=== PATIENT | male | born 1995 | race Caucasian/White ===

== ENCOUNTER 2019-05-27 20:40 | Emergency (ER) | payer MEDICAID ==
[2019-05-27] MEDS ORDERED: Lactated Ringers 1,000 ML IV ONE (22:03)
--- NOTE | 2019-05-27 22:05 | EDM.PDOC ---
ED HPI GENERAL MEDICAL PROBLEM - General Chief Complaint: General Stated Complaint: CHILLS COUGH Time Seen by Provider: 05/27/19 21:36 Source of Information: Reports: Family (Mother (primarily), A[facility] caregiver, father) History Limitations: Reports: Physical Impairment - History of Present Illness INITIAL COMMENTS - FREE TEXT/NARRATIVE: Mr. 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 The patient also has depression, anxiety, and scoliosis. He is on numerous antiepileptic and antidepressive medications. [facility] resides [facility] an [facility]. He is now brought to the ED by both his parents and an [facility] caregiver, who tell me that he has had a wet-sounding cough, a decreased appetite, and increased drowsiness since yesterday, and was making moaning and grunting noises, more than usual, since last night. He had a mildly elevated temperature, for him, tachycardia, and chills today. He may have also had 2 seizures today. The patient was taken to the walk-in clinic, where a rapid strep was performed, which was negative. The patient's mother tells me that the patient has had similar symptoms more than 20 times in the past, and that he is usually diagnosed with pneumonia. She tells me that he has had to be intubated once, and placed on BiPAP twice. The patient's PCP is Deanna Castillo NP. His Neurologist is Dr. Paxton Vyas. His Cardiovascular Surgeon is Dr. John Weinberg. The patient did receive an influenza vaccine this season. - Related Data Allergies Allergy/AdvReac Type Severity Reaction Status Date / Time risperidone Allergy Swelling Verified 05/27/19 21:12 Home Meds: Home Meds Bisacodyl [Gentle Laxative] 10 mg RC DAILY 05/27/19 [History] Carbamide Peroxide [Ear Wax Removal] 15 ml OT WEEKLY 05/27/19 [History] Divalproex Sodium 1,000 mg PO DAILY 05/27/19 [History] Docusate Sodium [Colace] 100 mg GTUBE DAILY 05/27/19 [History] Ibuprofen 400 mg PO ASDIRECTED 05/27/19 [History] LORazepam 1 mg PO ASDIRECTED 05/27/19 [History] Magnesium Citrate 150 ml GTUBE ASDIRECTED 05/27/19 [History] Melatonin/Pyridoxine HCl (B6) [Melatonin 3 mg Tablet] 3 mg GTUBE DAILY 05/27/19 [History] Mineral Oil [Mineral Oil Enema] 1 enema RECTAL ASDIRECTED 05/27/19 [History] Multivitamins [Tab-A-Lida] 1 tab PO DAILY 05/27/19 [History] Polyethylene Glycol [Polyox Wsr-301] 17 g GTUBE ASDIRECTED 05/27/19 [History] Rufinamide [Banzel] 800 mg PO DAILY 05/27/19 [History] Sennosides [Senna] 8.6 mg PO DAILY 05/27/19 [History] Sertraline [Zoloft] 200 mg PO DAILY 05/27/19 [History] hydrOXYzine HCL [Hydroxyzine HCl] 25 mg PO TID 05/27/19 [History] lamoTRIgine [Lamotrigine] 100 mg PO DAILY 05/27/19 [History] levOCARNitine [Levocarnitine] 330 mg PO TID 05/27/19 [History] Past Medical History Musculoskeletal History: Reports: Other (See Below) (Scoliosis) Neurological History: Reports: Seizure, Other (See Below) (MECP2 duplication syndrome, aka Lubs syndrome) Psychiatric History: Reports: Anxiety, Depression - Past Surgical History HEENT Surgical History: Reports: Oral Surgery (Dental extractions) GI Surgical History: Reports: Hernia, Inguinal (left, 1999), Other (See Below) ( G-tube) Neurological Surgical History: Reports: Other (See Below) (Vagal nerve stimulator) Social & Family History - Tobacco Use Smoking Status *Q: Never Smoker - Caffeine Use Caffeine Use: Reports: Soda - Alcohol Use Alcohol Use History: No - Recreational Drug Use Recreational Drug Use: No - Living Situation & Occupation Living situation: Reports: Single, Other ([facility]) Occupation: Disabled ED ROS GENERAL - Review of Systems Review Of Systems: Comprehensive ROS is negative, except as noted in HPI. ED EXAM, GENERAL - Physical Exam Exam: See Below Exam Limited By: Physical Impairment (cognitive impairment - did not follow commands) General Appearance: Alert, No Apparent Distress Eye Exam: Bilateral Eye: EOMI, Normal Inspection Ears: Normal External Exam Nose: Normal Inspection Throat/Mouth: Normal Inspection, Normal Lips, No Airway Compromise Head: Atraumatic, Normocephalic Neck: Normal Inspection Respiratory/Chest: No Respiratory Distress, Lungs Clear, Normal Breath Sounds, No Accessory Muscle Use. No: Decreased Breath Sounds, Crackles, Rhonchi, Wheezing, Stridor, Prolonged Expiration Cardiovascular: Normal Peripheral Pulses, No Gallop, No JVD, No Murmur, No Rub, Tachycardia (regular) Peripheral Pulses: 4+: Radial (L), Radial (R) GI/Abdominal: Normal Bowel Sounds, Soft, Non-Tender, No Organomegaly, No Distention, No Abnormal Bruit, No Mass, Other (G-tube) (Male) Exam: Deferred Rectal (Males) Exam: Deferred Back Exam: Normal Inspection, Full Range of Motion, NT Extremities: Normal Capillary Refill Neurological: Alert, Other (Non-verbal, does not follow commands) Skin Exam: Warm, Dry, Intact, Normal Color, No Rash EKG INTERPRETATION EKG Date: 05/27/19 Time: 23:07 Rhythm: Other (Sinus tachycardia) Rate (Beats/Min): 115 [place]: Normal P-Wave: Present QRS: Normal ST-T: Normal QT: Normal Comparison: NA - No Prior EKG Course - Vital Signs Last Recorded V/S: Last Vital Signs Temp 37.7 C 05/27/19 21:01 Pulse 117 H 05/27/19 21:01 Resp 18 05/27/19 21:01 BP 91/74 05/27/19 21:01 Pulse Ox 95 05/27/19 21:01 - Orders/Labs/Meds Orders: Active Orders 24 hr Category Date Time Status EKG Documentation Completion [RC] STAT Care 05/27/19 22:00 Active Ang Chest [CT] Stat Exams 05/28/19 01:13 Taken Chest 2V [CR] Stat Exams 05/27/19 22:07 Taken CULTURE BLOOD [BC] Stat Lab 05/27/19 22:02 Received CULTURE BLOOD [BC] Stat Lab 05/27/19 22:02 Received Sodium Chloride 0.9% [Normal Saline] 100 ml Med 05/28/19 01:45 Active IV ASDIRECTED Blood Culture x2 Reflex Set [OM.PC] Stat Oth 05/27/19 22:00 Ordered Medication Orders Sodium Chloride (Normal Saline) 100 mls @ 80 mls/hr IV ASDIRECTED ARISTIDES Last Admin: 05/28/19 02:59 Dose: 80 mls/hr Labs: Laboratory Tests 05/28/19 05/28/19 05/28/19 Range/Units 00:15 00:15 00:15 WBC 10.37 H (4.23-9.07) K/mm3 RBC 4.10 L (4.63-6.08) M/mm3 Hgb 12.5 L (13.7-17.5) gm/dl Hct 38.3 L (40.1-51.0) % MCV 93.4 H (79.0-92.2) fl MCH 30.5 (25.7-32.2) pg MCHC 32.6 (32.2-35.5) g/dl RDW Std Deviation 42.3 (35.1-43.9) fL Plt Count 200 (163-337) K/mm3 MPV 9.0 L (9.4-12.3) fl Neutrophils % (Manual) 56 (40-60) % Band Neutrophils % 26 H (0-10) % Lymphocytes % (Manual) 9 L (20-40) % Atypical Lymphs % 0 % Monocytes % (Manual) 8 (2-10) % Eosinophils % (Manual) 1 (0.8-7.0) % Basophils % (Manual) 0 L (0.2-1.2) Toxic Granulation 2+ moderate Platelet Estimate Adequate Plt Morphology Comment Normal RBC Morph Comment Normal D-Dimer, Quantitative 6.56 H (0.19-0.50) mg/L Sodium 142 (136-145) mEq/L Potassium 4.1 (3.5-5.1) mEq/L Chloride 104 (98-107) mEq/L Carbon Dioxide 30 (21-32) mEq/L Anion Gap 12.1 (5-15) BUN 13 (7-18) mg/dL Creatinine 1.0 (0.7-1.3) mg/dL Est Cr Clr Drug Dosing 128.23 mL/min Estimated GFR (MDRD) > 60 (>60) mL/min BUN/Creatinine Ratio 13.0 L (14-18) Glucose 101 (74-106) mg/dL Lactic Acid (0.4-2.0) mmol/L Calcium 9.1 (8.5-10.1) mg/dL Magnesium 2.3 (1.8-2.4) mg/dl Total Bilirubin 0.3 (0.2-1.0) mg/dL AST 21 (15-37) U/L ALT 13 L (16-63) U/L Alkaline Phosphatase 78 (46-116) U/L Troponin I < 0.017 (0.00-0.056) ng/mL Total Protein 7.7 (6.4-8.2) g/dl Albumin 2.7 L (3.4-5.0) g/dl Globulin 5.0 gm/dL Albumin/Globulin Ratio 0.5 L (1-2) Urine Color (Yellow) Urine Appearance (Clear) Urine pH (5.0-8.0) Ur Specific [place] (1.005-1.030) Urine Protein (Negative) Urine Glucose (UA) (Negative) Urine Ketones (Negative) Urine Occult Blood (Negative) Urine Nitrite (Negative) Urine Bilirubin (Negative) Urine Urobilinogen (0.2-1.0) Ur Leukocyte Esterase (Negative) Urine RBC (0-5) /hpf Urine WBC (0-5) /hpf Ur Squamous Epith Cells (0-5) /hpf Ur Transition Epith Cell (0-5) Urine Bacteria (FEW) /hpf Hyaline Casts (0-5) /lpf Urine Mucus (FEW) /hpf 05/28/19 05/28/19 Range/Units 00:15 03:17 WBC (4.23-9.07) K/mm3 RBC (4.63-6.08) M/mm3 Hgb (13.7-17.5) gm/dl Hct (40.1-51.0) % MCV (79.0-92.2) fl MCH (25.7-32.2) pg MCHC (32.2-35.5) g/dl RDW Std Deviation (35.1-43.9) fL Plt Count (163-337) K/mm3 MPV (9.4-12.3) fl Neutrophils % (Manual) (40-60) % Band Neutrophils % (0-10) % Lymphocytes % (Manual) (20-40) % Atypical Lymphs % % Monocytes % (Manual) (2-10) % Eosinophils % (Manual) (0.8-7.0) % Basophils % (Manual) (0.2-1.2) Toxic Granulation Platelet Estimate Plt Morphology Comment RBC Morph Comment D-Dimer, Quantitative (0.19-0.50) mg/L Sodium (136-145) mEq/L Potassium (3.5-5.1) mEq/L Chloride (98-107) mEq/L Carbon Dioxide (21-32) mEq/L Anion Gap (5-15) BUN (7-18) mg/dL Creatinine (0.7-1.3) mg/dL Est Cr Clr Drug Dosing mL/min Estimated GFR (MDRD) (>60) mL/min BUN/Creatinine Ratio (14-18) Glucose (74-106) mg/dL Lactic Acid 1.0 (0.4-2.0) mmol/L Calcium (8.5-10.1) mg/dL Magnesium (1.8-2.4) mg/dl Total Bilirubin (0.2-1.0) mg/dL AST (15-37) U/L ALT (16-63) U/L Alkaline Phosphatase (46-116) U/L Troponin I (0.00-0.056) ng/mL Total Protein (6.4-8.2) g/dl Albumin (3.4-5.0) g/dl Globulin gm/dL Albumin/Globulin Ratio (1-2) Urine Color Yellow (Yellow) Urine Appearance Clear (Clear) Urine pH 7.5 (5.0-8.0) Ur Specific [place] 1.020 (1.005-1.030) Urine Protein 2+ H (Negative) Urine Glucose (UA) Negative (Negative) Urine Ketones Trace H (Negative) Urine Occult Blood Negative (Negative) Urine Nitrite Negative (Negative) Urine Bilirubin 1+ H (Negative) Urine Urobilinogen >=8.0 H (0.2-1.0) Ur Leukocyte Esterase Negative (Negative) Urine RBC 0-5 (0-5) /hpf Urine WBC 0-5 (0-5) /hpf Ur Squamous Epith Cells 0-5 (0-5) /hpf Ur Transition Epith Cell 0-5 (0-5) Urine Bacteria Few (FEW) /hpf Hyaline Casts 0-5 (0-5) /lpf Urine Mucus Moderate H (FEW) /hpf Meds: Medications Generic Name Dose Route Start Last Admin Trade Name Freq PRN Reason Stop Dose Admin Sodium Chloride 100 mls @ 80 mls/hr 05/28/19 01:45 05/28/19 02:59 Normal Saline IV 80 mls/hr ASDIRECTED ARISTIDES Administration Discontinued Medications Generic Name Dose Route Start Last Admin Trade Name Evelia PRN Reason Stop Dose Admin Lactated Ringer's 1,000 mls @ 999 mls/hr 05/27/19 22:03 05/27/19 23:40 Ringers, Lactated IV 05/27/19 23:03 999 mls/hr .BOLUS ONE Administration Azithromycin 500 mg/ Sodium 250 mls @ 250 mls/hr 05/28/19 01:01 05/28/19 03: 04 Chloride IV 05/28/19 02:00 250 mls/hr ONETIME STA Administration Ceftriaxone Sodium 1 gm/ 100 mls @ 200 mls/hr 05/28/19 01:00 05/28/19 01:15 Sodium Chloride IV 05/28/19 01:29 200 mls/hr ONETIME STA Administration Iopamidol 100 ml 05/28/19 01:39 05/28/19 02:59 Isovue-370 (76%) IVPUSH 05/28/19 01:40 100 ml ONETIME ONE Administration Lorazepam 0.5 mg 05/28/19 02:29 05/28/19 02:33 Ativan IVPUSH 05/28/19 02:30 0.5 mg ONETIME ONE Administration - Re-Assessments/Exams Free Text/Narrative Re-Assessment/Exam: 05/27/19 22:05 As per the HPI, according to the patient's mother, the patient has had similar symptoms of a cough, chills, making moaning and grunting noises, decreased appetite, and tachycardia in the past, and been diagnosed with pneumonia, although, of note, he did not have pneumonia the only other time when he was seen in this ED, on 02/26/2018. Nevertheless, I have ordered a septic work-up that includes blood work, 2 sets of blood cultures, an influenza swab, a urinalysis, a 2-view chest x-ray, and an ECG. In the meantime, the patient will be given 1 L of LR, to see if that improves his tachycardia. 05/28/19 00:56 2-view chest radiograph reviewed. The cardiac silhouette is within normal limits. No pulmonary vascular congestion. There is a left-sided pleural effusion and either atelectasis or an infiltrate in the left lower lobe. No pneumothorax. A large amount of colonic air is noted. A left chest vagus nerve stimulator is incidentally noted. Formal read per the Radiologist pending. The patient's CBC is remarkable for a WBC count mildly elevated at 10.37. The differential is not yet back. His H/H are slightly depressed at 12.5/38.3, with the remainder of his CBC being unremarkable. His CMP is unremarkable. His magnesium level is within normal limits at 2.3. His troponin is undetectably low. His D-dimer is significantly elevated at 6.56. His lactic acid level and urinalysis results are still pending. Lab had significant difficulty in obtaining the patient's blood, but blood, including blood cultures, has now been drawn. The IV that was placed is a small- gauge IV in a hand, therefore the IV fluid has not been able to be bolused; only about 250 mL has infused so far, therefore it is too early to see if the patient has a hemodynamic response. Given the chest x-ray findings and elevated WBC count, even though I do not have the differential results as yet, I will treat the patient for CAP with empiric antibiotics, to include Rocephin and azithromycin. I will also order a CT angiogram of the chest to evaluate for a pulmonary embolus, however, before that can be performed, a larger gauge, more reliable IV will need to be placed. Sin BRISENO is going to attempt to find a larger vein, however, if unsuccessful, we may need to consider placing a central line. 05/28/19 01:44 The WBC differential has returned with 26% bandemia. The lactic acid level is within normal limits at 1.0. The bandemia is consistent with an acute infectious process, however, a normal lactic acid level is not consistent with sepsis. 05/28/19 02:42 Notified by the pharmacist technician that the patient was quite anxious in the CT scanner, reaching up and grabbing the gantry. He has been given 0.5 mg lorazepam IVP. 05/28/19 03:29 CT angiogram of the chest is read by Will as: 1. No central or segmental pulmonary embolus. 2. Small bilateral pleural effusions, left greater than right. 3. Possible multifocal bronchopneumonia versus pulmonary edema. 4. Occlusion of the proximal left lower lobe bronchus and distal bronchial branch right lower lobe, possibly secondary to mucus plugging/debris with likely associated postobstructive pneumonia. Cannot exclude possible endobronchial lesion. 5. Possible enlarged right paraesophageal/paravertebral lymph node measuring 2.1 x 2.1 cm. This could alternatively represent the medial right lower lobe pulmonary nodule. 6. Cannot exclude possible left infrahilar soft tissue mass causing left proximal lower lobe bronchus occlusion and postobstructive pneumonia. 7. Small pericardial effusion. 8. Splenomegaly. 9. Additional nonemergent CT findings above. 10. Fluid/debris versus possible left mid-tracheal lesion vision approximately 1.6 x 0.8 cm. Clinical correlation. 05/28/19 03:57 The patient's urinalysis is not consistent with a UTI. I am recommending transfer to [place], as the CT angiogram of the chest indicates that the patient may require bronchoscopy, which is not available at this facility. Additionally, the patient will likely require greater than 96 hours of hospitalization. 05/28/19 04:34 The above was discussed with the patient's mother. She prefers transfer to [facility]. Chest x-ray and CT images were pushed to [facility] at 04:20. Case then discussed with Lui at [facility] at 04:21. Case then discussed with Dr. Benitez, Hospitalist at [facility], at 04: 28. She accepted the patient for direct admission to their facility. When the patient initially arrived to the ED, his oxygen saturation was 95% on room air. At this time, only about half of the liter of LR has infused, but his oxygen saturation is decreased to 87% on room air. It is not clear if this is because of worsening pneumonia, or because of pulmonary edema, as #[address] report suggests. At present, the LR is infusing at about 200 mL per hour; I will decrease it to 100 mL per hour for transport. Additionally, a small amount of supplemental oxygen will be started. Departure - Departure Time of Disposition: 04:35 Disposition: DC/Tfer to Acute Hospital 02 Condition: Fair Clinical Impression: Community acquired pneumonia - Discharge Information *PRESCRIPTION DRUG MONITORING PROGRAM REVIEWED*: Not Applicable *COPY OF PRESCRIPTION DRUG MONITORING REPORT IN PATIENT SARAH: Not Applicable Referrals: Deanna Castillo NP [Primary Care Provider] - Paxton Vyas MD [Ordering Only Provider] - John Weinberg MD [Ordering Only Provider] - Forms: ED Department Discharge Sepsis Event Note - Evaluation Sepsis Screening Result: No Definite Risk - Focused Exam Vital Signs: Vital Signs Temp Pulse Resp BP Pulse Ox 05/27/19 21:01 37.7 C 117 H 18 91/74 95 Date Exam was Performed: 05/28/19 Time Exam was Performed: 04:47 - My Orders Last 24 Hours: My Active Orders 05/27/19 22:00 EKG Documentation Completion [RC] STAT Blood Culture x2 Reflex Set [OM.PC] Stat 05/27/19 22:02 CULTURE BLOOD [BC] Stat CULTURE BLOOD [BC] Stat 05/27/19 22:07 Chest 2V [CR] Stat 05/28/19 01:13 Ang Chest [CT] Stat 05/28/19 01:45 Sodium Chloride 0.9% [Normal Saline] 100 ml IV ASDIRECTED - Assessment/Plan Last 24 Hours: My Active Orders 05/27/19 22:00 EKG Documentation Completion [RC] STAT Blood Culture x2 Reflex Set [OM.PC] Stat 05/27/19 22:02 CULTURE BLOOD [BC] Stat CULTURE BLOOD [BC] Stat 05/27/19 22:07 Chest 2V [CR] Stat 05/28/19 01:13 Ang Chest [CT] Stat 05/28/19 01:45 Sodium Chloride 0.9% [Normal Saline] 100 ml IV ASDIRECTED
[2019-05-28] MEDS ORDERED: cefTRIAXone 1 GM in Sodium Chloride 0.9% 100 ML IV STA (01:00)
[2019-05-28] MEDS ORDERED: Azithromycin 500 MG in Sodium Chloride 0.9% 250 ML IV STA (01:01)
[2019-05-28] MEDS ORDERED: Iopamidol 755 Mg/ML 100 ML Bottle IVPUSH ONE (01:39)
[2019-05-28] MEDS ORDERED: Sodium Chloride 0.9% 100 ML IV SCH (01:45)
[2019-05-28] MEDS ORDERED: LORazepam 2 MG/ML SDV IVPUSH ONE (02:29)
--- NOTE | 2019-05-28 07:57 | CT ---
CT chest Technique: Multiple axial sections through the chest are obtained. Study performed as a pulmonary angiogram protocol. Intravenous contrast was therefore utilized. Comparison: Prior chest x-ray performed one day earlier. Findings: Minimal right-sided pleural effusion is seen with small left-sided pleural effusion. Left-sided implanted electrostimulating device is seen. Small pericardial effusion is noted. No discrete filling defects are seen to indicate pulmonary embolism. Multiple small lymph nodes are seen within the mediastinum. None of these lymph nodes are large enough to be called pathologic. Focal consolidation is identified within the left lower lung. Findings most likely representing pneumonia. Lesser consolidation noted within the right lung base. Slight increased bronchovascular markings are also noted which are scattered on both sides of the chest most likely representing areas of bronchitis. Spleen size measures at the upper limits of normal. No additional abnormality is appreciated within the visualized upper abdomen. Bone window settings were reviewed which showed no acute osseous finding. Impression: 1. Minimal right-sided pleural effusion and small left-sided pleural effusion. 2. Area of consolidation within the left base and smaller area of consolidation within the right lung base. Findings most likely representing pneumonia. 3. Increased bronchovascular markings are scattered within both lungs most likely representing bronchitis. 4. Small pericardial effusion is seen. 5. Spleen measures at the upper limits of normal. 6. Other findings believed to be incidental as described above. No findings of pulmonary embolism. Diagnostic code #5 This report was dictated in [place] Standard Time I agree with preliminary report from [facility], finalized on 05/28/19, 4:23 AM Central Time
--- NOTE | 2019-05-28 07:57 | CR ---
Chest: Two views of the chest were obtained. Comparison: Prior chest x-ray of 02/26/18. Small right sided pleural effusion with slightly larger left-sided pleural effusion is noted. Hazy parenchymal density is also noted within the left lung base most likely due to atelectasis or pneumonia. Upper lungs are clear. Heart size is normal. Bony structures are unremarkable. Impression: 1. Pleural effusions. 2. Parenchymal density within left lung base either due to atelectasis or pneumonia. Diagnostic code #3 This report was dictated in [place] Standard Time
== END 2019-05-28 05:20 ==
LOC: JD.ED 20:40
DX: J18.9 Pneumonia, unspecified organism (principal); F32.9 Major depressive disorder, single episode, unspecified; F41.9 Anxiety disorder, unspecified; Z79.899 Other long term (current) drug therapy; Z88.8 Allergy status to other drugs, medicaments and biological substances; Z98.890 Other specified postprocedural states
CPT/HCPCS: 36415; 71046; 71275; 80053; 81001; 83605; 83735; 84484; 85007; 85027; 85379; 87040; 87804; 93005; 96361; 96365; 96367; 96375; 99285; J0456; J0696; J2060; J7050; J7120; Q9967; 93010; 99283

== ENCOUNTER 2019-06-15 20:36 | Emergency (ER) | payer MEDICAID ==
[2019-06-15] MEDS ORDERED: Sodium Chloride 0.9% 10 ML Syringe FLUSH PRN (22:05)
--- NOTE | 2019-06-15 22:11 | EDM.PDOC ---
ED HPI GENERAL MEDICAL PROBLEM - General Chief Complaint: Respiratory Problem Stated Complaint: COUGH AND LOW OXYGEN Time Seen by Provider: 06/15/19 21:46 Source of Information: Reports: Family (mother/father), Old Records (from 2019), Provider (ABLE caregiver) History Limitations: Reports: Physical Impairment (Pt has genetic disorder) - History of Present Illness INITIAL COMMENTS - FREE TEXT/NARRATIVE: Patient is a 23-year-old male who presents to the ED for the evaluation of a cough and low oxygen levels. The patient was most recently evaluated in this ER on 05/27/2019 for similar symptoms, and he was found to have a left-sided pneumonia. He was transported to [place] for management of this. He was discharged home on oxygen that he wears at night. Patient has an X-linked genetic abnormality, that causes severe mental retardation, seizures, progressive spasticity, and recurrent infections. The able caregiver was able to tell me that the patient has become more lethargic over the day, and he seems to be drooling a little bit more than he normally does, and states that he has had a decreased appetite. Patient was most recently evaluated by his primary care provider on June 08, and they state that there was some fluid on the right lung, outside of his lung, but nothing much was done about this. The able caregiver notes that the patient did have a fever at their facility and he was given Tylenol 1-1/2 hours prior to arrival to the ER. The able caregiver states that the patient has been urinating fine. 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: oxygen at noc 1.5L/NC - Related Data Allergies Allergy/AdvReac Type Severity Reaction Status Date / Time risperidone Allergy Swelling Verified 05/27/19 21:12 Home Meds: Home Meds Bisacodyl [Gentle Laxative] 10 mg RC ASDIRECTED 05/27/19 [History] Carbamide Peroxide [Ear Wax Removal] 15 ml OT WEEKLY 05/27/19 [History] Divalproex Sodium 1,000 mg PO DAILY 05/27/19 [History] Docusate Sodium [Colace] 100 mg GTUBE DAILY 05/27/19 [History] LORazepam 1 mg PO ASDIRECTED 05/27/19 [History] Magnesium Citrate 150 ml GTUBE ASDIRECTED 05/27/19 [History] Melatonin/Pyridoxine HCl (B6) [Melatonin 3 mg Tablet] 3 mg GTUBE DAILY 05/27/19 [History] Mineral Oil [Mineral Oil Enema] 1 enema RECTAL ASDIRECTED 05/27/19 [History] Multivitamins [Tab-A-Lida] 1 tab PO DAILY 05/27/19 [History] Polyethylene Glycol [Polyox Wsr-301] 17 g GTUBE ASDIRECTED 05/27/19 [History] Rufinamide [Banzel] 800 mg PO DAILY 05/27/19 [History] Sennosides [Senna] 8.6 mg PO DAILY 05/27/19 [History] Sertraline [Zoloft] 200 mg PO DAILY 05/27/19 [History] hydrOXYzine HCL [Hydroxyzine HCl] 25 mg PO TID 05/27/19 [History] lamoTRIgine [Lamotrigine] 100 mg PO DAILY 05/27/19 [History] levOCARNitine [Levocarnitine] 330 mg PO TID 05/27/19 [History] LORazepam [LORazepam Intensol] mg PO 06/15/19 [History] Past Medical History Other HEENT History: vocal tic disorder Cardiovascular History: Reports: Other (See Below) Other Cardiovascular History: VNS vest Respiratory History: Reports: Pneumonia, Recurrent Musculoskeletal History: Reports: Other (See Below) Other Musculoskeletal History: scoliosis Neurological History: Reports: Seizure, Other (See Below) Other Neuro History: Dandy-Walker syndrome, protein disorder Psychiatric History: Reports: Anxiety, Depression Other Psychiatric History: dalila johnston - Past Surgical History HEENT Surgical History: Reports: Oral Surgery GI Surgical History: Reports: Hernia, Inguinal, Other (See Below) Neurological Surgical History: Reports: Other (See Below) Social & Family History - Tobacco Use Second Hand Smoke Exposure: No - Caffeine Use Caffeine Use: Reports: Soda - Living Situation & Occupation Living situation: Reports: Single, Other ([facility]) Occupation: Disabled ED ROS GENERAL - Review of Systems Review Of Systems: See Below Constitutional: Reports: Fever (reported at [facility] afebrile at time of triage) HEENT: Reports: Other (increased drooling) Respiratory: Reports: Cough, Other (reported decreased o2 sats, he is 94% on RA here). Denies: Wheezing Cardiovascular: Denies: Chest Pain GI/Abdominal: Denies: Nausea, Vomiting ED EXAM, GENERAL - Physical Exam Exam: See Below Exam Limited By: Physical Impairment General Appearance: No Apparent Distress, Lethargic (mother states that the patient is normally more alert than this.) Head: Atraumatic, Normocephalic Neck: Normal Inspection Respiratory/Chest: No Respiratory Distress, No Accessory Muscle Use, Chest Non- Tender, Decreased Breath Sounds (decreased bilaterally), Crackles (bilaterally, but exquisitely over both lung bases) Cardiovascular: Normal Peripheral Pulses, Regular Rate, Rhythm, No Edema, No Murmur Peripheral Pulses: 3+: Radial (L), Radial (R) GI/Abdominal: Normal Bowel Sounds, Soft, Non-Tender, No Distention, No Mass Extremities: Normal Inspection, Normal Capillary Refill Neurological: Other (pt does appear to be lethargic and does arouse to stimuli) Skin Exam: Warm, Dry, Intact, Normal Color, No Rash Course - Vital Signs Last Recorded V/S: Last Vital Signs Temp 96.9 F 06/15/19 20:50 Pulse 97 06/15/19 21:26 Resp 20 06/15/19 21:26 BP Pulse Ox 95 06/15/19 21:26 - Orders/Labs/Meds Orders: Active Orders 24 hr Category Date Time Status Peripheral IV Care [RC] . DIRECTED Care 06/15/19 22:06 Active Chest 1V Frontal [CR] Stat Exams 06/15/19 21:46 Taken CULTURE BLOOD [BC] Stat Lab 06/15/19 21:57 Ordered CULTURE BLOOD [BC] Stat Lab 06/15/19 22:08 Received Sodium Chloride 0.9% [Saline Flush] Med 06/15/19 22:05 Active 10 ml FLUSH ASDIRECTED PRN Blood Culture x2 Reflex Set [OM.PC] Stat Oth 06/15/19 21:57 Ordered Peripheral IV Insertion Adult [OM.PC] Stat Oth 06/15/19 22:06 Ordered Medication Orders Sodium Chloride (Saline Flush) 10 ml FLUSH ASDIRECTED PRN PRN Reason: Keep Vein Open Last Admin: 06/15/19 22:34 Dose: 10 ml Labs: Laboratory Tests 06/15/19 06/15/19 Range/Units 22:08 22:08 WBC 7.71 (4.23-9.07) K/mm3 RBC 3.93 L (4.63-6.08) M/mm3 Hgb 11.7 L (13.7-17.5) gm/dl Hct 35.9 L (40.1-51.0) % MCV 91.3 (79.0-92.2) fl MCH 29.8 (25.7-32.2) pg MCHC 32.6 (32.2-35.5) g/dl RDW Std Deviation 41.4 (35.1-43.9) fL Plt Count 294 D (163-337) K/mm3 MPV 8.3 L (9.4-12.3) fl Neutrophils % (Manual) 73 H (40-60) % Band Neutrophils % 0 (0-10) % Lymphocytes % (Manual) 21 (20-40) % Atypical Lymphs % 0 % Monocytes % (Manual) 6 (2-10) % Eosinophils % (Manual) 0 L (0.8-7.0) % Basophils % (Manual) 0 L (0.2-1.2) Platelet Estimate Adequate RBC Morph Comment Normal Sodium 137 (136-145) mEq/L Potassium 3.7 (3.5-5.1) mEq/L Chloride 102 (98-107) mEq/L Carbon Dioxide 28 (21-32) mEq/L Anion Gap 10.7 (5-15) BUN 12 (7-18) mg/dL Creatinine 0.8 (0.7-1.3) mg/dL Est Cr Clr Drug Dosing 152.14 mL/min Estimated GFR (MDRD) > 60 (>60) mL/min BUN/Creatinine Ratio 15.0 (14-18) Glucose 87 (74-106) mg/dL Calcium 9.1 (8.5-10.1) mg/dL Total Bilirubin 0.2 (0.2-1.0) mg/dL AST 13 L (15-37) U/L ALT 15 L (16-63) U/L Alkaline Phosphatase 75 (46-116) U/L Total Protein 7.9 (6.4-8.2) g/dl Albumin 2.7 L (3.4-5.0) g/dl Globulin 5.2 gm/dL Albumin/Globulin Ratio 0.5 L (1-2) Meds: Medications Generic Name Dose Route Start Last Admin Trade Name Freq PRN Reason Stop Dose Admin Sodium Chloride 10 ml 06/15/19 22:05 06/15/19 22:34 Saline Flush FLUSH 10 ml ASDIRECTED PRN Administration Keep Vein Open - Re-Assessments/Exams Free Text/Narrative Re-Assessment/Exam: 06/15/19 22:14 Patient presents to the ED for evaluation of cough and lethargy. I did order a chest x-ray, CBC, CMP, and blood cultures for evaluation. Chest x-ray does demonstrate some basilar atelectasis, and blunting of both costophrenic angles, there does appear to be fluid in the fissure of the right lung as well. At this time just on visual appearance of this patient, I do not believe he would be appropriate to be sent back to [facility], and that he would likely need transfer to [place] for further management as he would not be suitable for this facility. 06/15/19 23:20 Patient's x-ray is read by [facility], there are curvilinear densities in the left lung base which are probably subsegmental atelectasis, the consolidation of the left lung base seen on the prior chest x-ray is now resolving. There is blunting of both costophrenic angles possibly from small bilateral pleural effusions. Patient's laboratory evaluation demonstrates no obvious abnormalities, however clinically I would think that the patient does have if not resolving pneumonia may be the start of a new pneumonia. 06/15/19 23:43 I did call [facility] call for possible transfer of this patient, I did talk with Dr. Obando, and he does accept the patient for transfer for suspected pneumonia. He suggest some IV antibiotics to be started. I did order 2 g of Rocephin for this. Patient will be admitted to observation at [facility] in [facility] for further management. Departure - Departure Time of Disposition: 23:44 Disposition: DC/Tfer to Acute Hospital 02 Condition: Fair Clinical Impression: Pneumonia Qualifiers: Pneumonia type: due to unspecified organism Laterality: left Lung location: lower lobe of lung Qualified Code(s): J18.9 - Pneumonia, unspecified organism - Discharge Information *PRESCRIPTION DRUG MONITORING PROGRAM REVIEWED*: No *COPY OF PRESCRIPTION DRUG MONITORING REPORT IN PATIENT SARAH: No Referrals: Gavino Singh MD [Primary Care Provider] - Forms: ED Department Discharge Sepsis Event Note - Evaluation Sepsis Screening Result: No Definite Risk - Focused Exam Vital Signs: Vital Signs Temp Pulse Resp Pulse Ox 06/15/19 21:26 97 20 95 06/15/19 20:50 96.9 F 95 20 94 L Date Exam was Performed: 06/15/19 Time Exam was Performed: 23:20 - My Orders Last 24 Hours: My Active Orders 06/15/19 21:46 Chest 1V Frontal [CR] Stat 06/15/19 21:57 CULTURE BLOOD [BC] Stat Blood Culture x2 Reflex Set [OM.PC] Stat 06/15/19 22:05 Sodium Chloride 0.9% [Saline Flush] 10 ml FLUSH ASDIRECTED PRN 06/15/19 22:06 Peripheral IV Care [RC] . DIRECTED Peripheral IV Insertion Adult [OM.PC] Stat 06/15/19 22:08 CULTURE BLOOD [BC] Stat - Assessment/Plan Last 24 Hours: My Active Orders 06/15/19 21:46 Chest 1V Frontal [CR] Stat 06/15/19 21:57 CULTURE BLOOD [BC] Stat Blood Culture x2 Reflex Set [OM.PC] Stat 06/15/19 22:05 Sodium Chloride 0.9% [Saline Flush] 10 ml FLUSH ASDIRECTED PRN 06/15/19 22:06 Peripheral IV Care [RC] . DIRECTED Peripheral IV Insertion Adult [OM.PC] Stat 06/15/19 22:08 CULTURE BLOOD [BC] Stat
[2019-06-15] MEDS ORDERED: cefTRIAXone 2 GM in Sodium Chloride 0.9% 100 ML IV ONE (23:42)
--- NOTE | 2019-06-16 10:53 | CR ---
Chest: Portable view of the chest was obtained. Comparison: Prior chest x-ray of 05/27/[address] study performed on 05/28/19. Small bilateral pleural effusions are noted. Linear densities within the left lung base is seen most likely representing atelectasis. Lungs otherwise are clear. Heart size and mediastinum are normal. Bony structures are grossly intact. Impression: 1. Small bilateral pleural effusions and probable atelectasis within the left lung base. Diagnostic code #3 This report was dictated in [place] Standard Time I agree with preliminary report from [facility], finalized on 06/15/19, 11:24 PM Central Time
== END 2019-06-16 00:53 ==
LOC: JD.ED 20:36
DX: J18.9 Pneumonia, unspecified organism (principal); M41.9 Scoliosis, unspecified; F41.9 Anxiety disorder, unspecified; F32.9 Major depressive disorder, single episode, unspecified; R56.9 Unspecified convulsions; Z79.899 Other long term (current) drug therapy
CPT/HCPCS: 36415; 71045; 80053; 85007; 85027; 87040; 96374; 99285; J0696; J7050; 99283

== ENCOUNTER 2023-04-08 12:21 | Inpatient (IN) | payer MEDICAID ==
[2023-04-08] MEDS ORDERED: Sodium Chloride 0.9% 10 ML Syringe FLUSH PRN ×2 (12:44→12:51)
[2023-04-08] MEDS ORDERED: Acetaminophen 325 MG Tab PO ONE (13:05)
[2023-04-08 13:35] LABS: CORONAVIRUS COVID-19 NAA NEGATIVE (NEGATIVE); INFLUENZA A NAA NEGATIVE (NEGATIVE); RESPIRATORY SYNCYTIAL VIR NAA NEGATIVE (NEGATIVE)
[2023-04-08] MEDS ORDERED: Sodium Chloride 0.9% 1,000 ML IV STA (13:46)
[2023-04-08] MEDS ORDERED: Acetaminophen 650 MG Supp RECTAL ONE (14:30)
[2023-04-08] MEDS ORDERED: Acetaminophen 325 MG Supp RECTAL ONE (14:30)
[2023-04-08 14:37] LABS: BASOPHILS PERCENT AUTO 0.2 % (0.0-1.0); HEMATOCRIT 48.2 % (42.0-52.0); HEMOGLOBIN 15.7 gm/dl (14.0-18.0); IMMATURE GRAN ABSOLUTE AUTO 0.05 K/mm3 (0.00-0.05); IMMATURE GRAN PERCENT AUTO 0.4 % (0.0-0.4); LYMPHOCYTES ABSOLUTE AUTO 0.7 K/mm3 (1.0-4.8); LYMPHOCYTES PERCENT AUTO 5.8 % (24.0-44.0); MEAN CORPUSCULAR HGB CONC 32.6 g/dl (32.0-36.0); MEAN CORPUSCULAR VOLUME 92.2 fl (83.0-99.0); MEAN PLATELET VOLUME 10.6 fl (9.4-12.4); MONOCYTES ABSOLUTE AUTO 0.7 K/mm3 (0.0-0.8); MONOCYTES PERCENT AUTO 5.7 % (0.0-8.0); NEUTROPHILS ABSOLUTE AUTO 10.9 K/mm3 (1.8-7.7); NEUTROPHILS PERCENT AUTO 87.9 % (41.0-71.0); PLATELET COUNT,PLT 157 K/mm3 (150-400); RED BLOOD CELL COUNT 5.23 M/mm3 (4.52-5.90); WHITE BLOOD CELL COUNT,WBC 12.35 K/mm3 (3.9-11.3)
[2023-04-08 14:55] LABS: INR 1.16; PROTHROMBIN TIME 12.3 SECONDS (9.7-12.0)
[2023-04-08 15:06] LABS: A/G RATIO 0.7 (1-2); ALBUMIN 3.3 g/dl (3.4-5.0); ANION GAP 14.4 (5-15); BILIRUBIN TOTAL 0.4 mg/dL (0.2-1.0); BUN/CREATININE RATIO 12.2 (14-18); CALCIUM 9.3 mg/dL (8.5-10.1); CREATININE 0.9 mg/dL (0.7-1.3); EST CRCL DRUG DOSING (CG) 140.81 mL/min; POTASSIUM,K 4.4 mEq/L (3.5-5.1); PROTEIN TOTAL,TP 8.3 g/dl (6.4-8.2)
[2023-04-08] MEDS ORDERED: cefTRIAXone 2 GM in Sodium Chloride 0.9% 100 ML IV ONE (15:07)
[2023-04-08 15:08] LABS: SLIDE REVIEW ABNORMAL SMEAR
[2023-04-08] MEDS ORDERED: Azithromycin 500 MG in Sodium Chloride 0.9% 250 ML IV ONE (15:21)
[2023-04-08 15:38] LABS: C-REACTIVE PROTEIN 27.5 mg/dL (<1.0)
[2023-04-08] MEDS ORDERED: cefTRIAXone 2 GM Vial ONE (15:43)
[2023-04-08] MEDS ORDERED: Sodium Chloride 0.9% 100 ML ONE (15:46)
[2023-04-08] MEDS ORDERED: Lidocaine 2% 11 ML Jelly Filled Syringe MUCMEM STA (16:23)
[2023-04-08] MEDS ORDERED: Ondansetron 4 MG/2 ML SDV IV PRN (16:28)
[2023-04-08] MEDS ORDERED: Acetaminophen 325 MG Tab PO PRN (16:28)
[2023-04-08 16:46] LABS: APPEARANCE,URINE SLT CLOUDY (Clear); BILIRUBIN,URINE 2+ (Negative); COLOR,URINE YELLOW (Yellow); GLUCOSE,URINE NEGATIVE (Negative); KETONES,URINE 4+ (Negative); LEUKOCYTE ESTERASE,URINE NEGATIVE (Negative); NITRITE,URINE NEGATIVE (Negative); OCCULT BLOOD,URINE NEGATIVE (Negative); PH,URINE 6.5 (5.0-8.0); PROTEIN,URINE 3+ (Negative)
[2023-04-08 17:03] LABS: BACTERIA,URINE FEW /hpf (FEW); MUCUS,URINE MANY /hpf (FEW); RBC,URINE 0-5 /hpf (0-5); SQUAMOUS EPITHELIAL CELLS,UR 0-5 /hpf (0-5); WBC,URINE 0-5 /hpf (0-5)
[2023-04-08] MEDS: Acetaminophen 650 MG Supp ONE ×2 (17:25→17:33)
[2023-04-08] MEDS ORDERED: Sodium Chloride 0.9% 1,000 ML IV SCH (20:25)
[2023-04-08] MEDS: RUFINAMIDE 400 MG PO SCH (21:12)
[2023-04-08] MEDS: Sertraline 50 MG Tab PO SCH (21:12)
[2023-04-08] MEDS: lamoTRIgine 100 MG Tab PO SCH (21:13)
[2023-04-08] MEDS: Lactulose Soln 10 GM/15 ML 30 ML UD Cup PO SCH (21:14)
[2023-04-08] MEDS: Divalproex Sodium Delayed-Release 250 MG Tab.CR PO SCH (21:14)
[2023-04-08] MEDS: hydrOXYzine HCl 25 MG Tab PO SCH (21:14)
[2023-04-08] MEDS: Acetaminophen 650 MG Supp RECTAL PRN (22:26)
[2023-04-09 05:44] LABS: HEMATOCRIT 37.2 % (42.0-52.0); MEAN CORPUSCULAR HEMOGLOBIN 30.8 pg (28.0-32.0); MEAN CORPUSCULAR HGB CONC 33.3 g/dl (32.0-36.0); MEAN CORPUSCULAR VOLUME 92.3 fl (83.0-99.0); MEAN PLATELET VOLUME 9.3 fl (9.4-12.4); PLATELET COUNT,PLT 147 K/mm3 (150-400); RED BLOOD CELL COUNT 4.03 M/mm3 (4.52-5.90); WHITE BLOOD CELL COUNT,WBC 12.28 K/mm3 (3.9-11.3)
[2023-04-09 05:52] LABS: HEMOGLOBIN 12.4 gm/dl (14.0-18.0)
[2023-04-09 06:11] LABS: A/G RATIO 0.6 (1-2); ALBUMIN 2.8 g/dl (3.4-5.0); BILIRUBIN TOTAL 0.5 mg/dL (0.2-1.0); BUN/CREATININE RATIO 8.9 (14-18); CALCIUM 8.7 mg/dL (8.5-10.1); CREATININE 0.9 mg/dL (0.7-1.3); EST CRCL DRUG DOSING (CG) 140.81 mL/min; MAGNESIUM 1.7 mg/dL (1.8-2.4); PROTEIN TOTAL,TP 7.5 g/dl (6.4-8.2)
[2023-04-09 06:32] LABS: C-REACTIVE PROTEIN 36.6 mg/dL (<1.0)
[2023-04-09] MEDS ORDERED: Magnesium Sulfate/Water 2 GM in Premix Bag 1 BAG IV ONE (06:36)
[2023-04-09] MEDS ORDERED: Piperacillin/Tazobactam 4.5 GM in Sodium Chloride 0.9% 100 ML IV ONE (07:00)
[2023-04-09] MEDS ORDERED: Sodium Chloride 0.9% 500 ML ONE (07:40)
[2023-04-09] MEDS: Sertraline 50 MG Tab PO SCH ×3 (07:53→22:44)
[2023-04-09] MEDS: lamoTRIgine 100 MG Tab PO SCH ×4 (07:53→22:44)
[2023-04-09] MEDS: RUFINAMIDE 400 MG PO SCH ×4 (07:53→22:44)
[2023-04-09] MEDS: Divalproex Sodium Delayed-Release 250 MG Tab.CR PO SCH ×3 (07:54→22:44)
[2023-04-09] MEDS: hydrOXYzine HCl 25 MG Tab PO SCH ×6 (07:54→22:43)
[2023-04-09] MEDS: Lactulose Soln 10 GM/15 ML 30 ML UD Cup PO SCH ×5 (07:54→22:41)
[2023-04-09] MEDS: Divalproex Sodium Delayed-Release 500 MG Tab.CR PO SCH ×3 (08:17→14:30)
[2023-04-09] MEDS: Meloxicam 7.5 MG Tab PO SCH (08:17)
[2023-04-09] MEDS: Enoxaparin 40 MG/0.4 ML Syringe SUBCUT SCH (08:17)
[2023-04-09] MEDS: Sennosides 8.6 MG Tab PO SCH (08:18)
[2023-04-09] MEDS: Acetaminophen 650 MG Supp RECTAL PRN ×4 (09:29→22:25)
[2023-04-09] MEDS: Docusate Sodium 100 MG Cap PO SCH (12:21)
[2023-04-09] MEDS ORDERED: Azithromycin 250 MG in Sodium Chloride 0.9% 250 ML IV SCH (13:00)
[2023-04-09] MEDS: Piperacillin/Tazobactam 4.5 GM in Sodium Chloride 0.9% 100 ML IV SCH ×2 (13:38→20:36)
[2023-04-09] MEDS ORDERED: cefTRIAXone 2 GM in Sodium Chloride 0.9% 100 ML IV SCH (15:00)
[2023-04-09] MEDS ORDERED: Iopamidol 612 MG/ML 100 ML Bottle IVPUSH ONE (16:02)
[2023-04-10] MEDS: Acetaminophen 650 MG Supp RECTAL PRN (04:11)
[2023-04-10] MEDS: Piperacillin/Tazobactam 4.5 GM in Sodium Chloride 0.9% 100 ML IV SCH ×3 (04:26→21:24)
[2023-04-10] MEDS ORDERED: Sodium Chloride 0.9% 250 ML ONE (05:51)
[2023-04-10 05:56] LABS: HEMATOCRIT 35.8 % (42.0-52.0); MEAN CORPUSCULAR HEMOGLOBIN 30.4 pg (28.0-32.0); MEAN CORPUSCULAR HGB CONC 33.5 g/dl (32.0-36.0); MEAN CORPUSCULAR VOLUME 90.6 fl (83.0-99.0); MEAN PLATELET VOLUME 9.8 fl (9.4-12.4); PLATELET COUNT,PLT 167 K/mm3 (150-400); RED BLOOD CELL COUNT 3.95 M/mm3 (4.52-5.90)
[2023-04-10 06:19] LABS: A/G RATIO 0.5 (1-2); ALBUMIN 2.6 g/dl (3.4-5.0); ANION GAP 13.7 (5-15); BILIRUBIN TOTAL 0.5 mg/dL (0.2-1.0); BUN/CREATININE RATIO 11.3 (14-18); CALCIUM 8.7 mg/dL (8.5-10.1); CREATININE 0.8 mg/dL (0.7-1.3); EST CRCL DRUG DOSING (CG) 158.41 mL/min; MAGNESIUM 2.1 mg/dL (1.8-2.4); POTASSIUM,K 3.7 mEq/L (3.5-5.1); PROTEIN TOTAL,TP 7.4 g/dl (6.4-8.2)
[2023-04-10 06:34] LABS: C-REACTIVE PROTEIN 42.7 mg/dL (<1.0)
[2023-04-10] MEDS: hydrOXYzine HCl 25 MG Tab PO SCH (08:44)
[2023-04-10] MEDS: lamoTRIgine 100 MG Tab PO SCH ×2 (08:44→21:27)
[2023-04-10] MEDS: Meloxicam 7.5 MG Tab PO SCH (08:44)
[2023-04-10] MEDS: Lactulose Soln 10 GM/15 ML 30 ML UD Cup PO SCH ×3 (08:44→21:34)
[2023-04-10] MEDS: Docusate Sodium 100 MG Cap PO SCH (08:44)
[2023-04-10] MEDS: Divalproex Sodium Delayed-Release 500 MG Tab.CR PO SCH ×2 (08:44→14:38)
[2023-04-10] MEDS: Sennosides 8.6 MG Tab PO SCH (08:44)
[2023-04-10] MEDS: Enoxaparin 40 MG/0.4 ML Syringe SUBCUT SCH (08:44)
[2023-04-10] MEDS: RUFINAMIDE 400 MG PO SCH ×2 (08:45→21:29)
[2023-04-10] MEDS: hydrOXYzine HCl 50 MG Tab PO SCH ×2 (14:38→21:26)
[2023-04-10] MEDS: Divalproex Sodium Delayed-Release 250 MG Tab.CR PO SCH (21:27)
[2023-04-10] MEDS: Sertraline 50 MG Tab PO SCH (21:27)
[2023-04-11] MEDS: Piperacillin/Tazobactam 4.5 GM in Sodium Chloride 0.9% 100 ML IV SCH ×3 (04:44→20:20)
[2023-04-11 05:48] LABS: HEMATOCRIT 35.5 % (42.0-52.0); MEAN CORPUSCULAR HEMOGLOBIN 30.4 pg (28.0-32.0); MEAN CORPUSCULAR HGB CONC 33.8 g/dl (32.0-36.0); MEAN CORPUSCULAR VOLUME 89.9 fl (83.0-99.0); PLATELET COUNT,PLT 178 K/mm3 (150-400); RED BLOOD CELL COUNT 3.95 M/mm3 (4.52-5.90); WHITE BLOOD CELL COUNT,WBC 8.31 K/mm3 (3.9-11.3)
[2023-04-11 06:08] LABS: A/G RATIO 0.5 (1-2); ALBUMIN 2.4 g/dl (3.4-5.0); ANION GAP 13.1 (5-15); BILIRUBIN TOTAL 0.4 mg/dL (0.2-1.0); BUN/CREATININE RATIO 14.3 (14-18); CALCIUM 8.5 mg/dL (8.5-10.1); CREATININE 0.7 mg/dL (0.7-1.3); EST CRCL DRUG DOSING (CG) 181.04 mL/min; POTASSIUM,K 3.1 mEq/L (3.5-5.1); PROTEIN TOTAL,TP 7.3 g/dl (6.4-8.2)
[2023-04-11 06:39] LABS: C-REACTIVE PROTEIN 41.3 mg/dL (<1.0)
[2023-04-11] MEDS: Divalproex Sodium Delayed-Release 500 MG Tab.CR PO SCH ×2 (09:02→14:43)
[2023-04-11] MEDS: Docusate Sodium 100 MG Cap PO SCH (09:02)
[2023-04-11] MEDS: hydrOXYzine HCl 50 MG Tab PO SCH ×3 (09:02→20:20)
[2023-04-11] MEDS: Sennosides 8.6 MG Tab PO SCH (09:03)
[2023-04-11] MEDS: Potassium Chloride 20 MEQ Tab.ER PO SCH ×2 (09:03→20:20)
[2023-04-11] MEDS: lamoTRIgine 100 MG Tab PO SCH ×2 (09:03→20:20)
[2023-04-11] MEDS: Meloxicam 7.5 MG Tab PO SCH (09:04)
[2023-04-11] MEDS: Lactulose Soln 10 GM/15 ML 30 ML UD Cup PO SCH ×3 (09:04→20:20)
[2023-04-11] MEDS: Enoxaparin 40 MG/0.4 ML Syringe SUBCUT SCH (09:04)
[2023-04-11] MEDS: RUFINAMIDE 400 MG PO SCH ×2 (09:05→20:25)
[2023-04-11] MEDS ORDERED: Scopolamine 1.5 MG Transdermal Patch TRDERM SCH (14:00)
[2023-04-11] MEDS: Divalproex Sodium Delayed-Release 250 MG Tab.CR PO SCH (20:20)
[2023-04-11] MEDS: Sertraline 50 MG Tab PO SCH (20:20)
[2023-04-12] MEDS: Piperacillin/Tazobactam 4.5 GM in Sodium Chloride 0.9% 100 ML IV SCH (04:46)
[2023-04-12 06:36] LABS: HEMATOCRIT 37.7 % (42.0-52.0); HEMOGLOBIN 12.3 gm/dl (14.0-18.0); MEAN CORPUSCULAR HGB CONC 32.6 g/dl (32.0-36.0); MEAN PLATELET VOLUME 10.2 fl (9.4-12.4); PLATELET COUNT,PLT 194 K/mm3 (150-400); WHITE BLOOD CELL COUNT,WBC 5.79 K/mm3 (3.9-11.3)
[2023-04-12 07:13] LABS: A/G RATIO 0.4 (1-2); ALBUMIN 2.2 g/dl (3.4-5.0); ANION GAP 13.9 (5-15); BILIRUBIN TOTAL 0.3 mg/dL (0.2-1.0); BUN/CREATININE RATIO 18.6 (14-18); CALCIUM 8.7 mg/dL (8.5-10.1); CREATININE 0.7 mg/dL (0.7-1.3); EST CRCL DRUG DOSING (CG) 181.04 mL/min; POTASSIUM,K 3.9 mEq/L (3.5-5.1); PROTEIN TOTAL,TP 7.3 g/dl (6.4-8.2)
[2023-04-12 07:29] LABS: C-REACTIVE PROTEIN 31.6 mg/dL (<1.0)
[2023-04-12] MEDS: hydrOXYzine HCl 50 MG Tab PO SCH (08:24)
[2023-04-12] MEDS: lamoTRIgine 100 MG Tab PO SCH (08:27)
[2023-04-12] MEDS: Docusate Sodium 100 MG Cap PO SCH (08:28)
[2023-04-12] MEDS: Sennosides 8.6 MG Tab PO SCH (08:28)
[2023-04-12] MEDS: Divalproex Sodium Delayed-Release 500 MG Tab.CR PO SCH (08:28)
[2023-04-12] MEDS: Enoxaparin 40 MG/0.4 ML Syringe SUBCUT SCH (08:28)
[2023-04-12] MEDS: Meloxicam 7.5 MG Tab PO SCH (08:28)
[2023-04-12] MEDS: Lactulose Soln 10 GM/15 ML 30 ML UD Cup PO SCH (08:29)
== END 2023-04-12 11:30 | disposition home or self-care (01) | DRG 871 ==
LOC: JD.ED 12:21 → JD.MS 16:15
PROVIDERS: ADMIT Internal Medicine; ATTEND Internal Medicine
DX: A41.9 Sepsis, unspecified organism (principal); J18.9 Pneumonia, unspecified organism; J96.01 Acute respiratory failure with hypoxia; G40.812 Lennox-Gastaut syndrome, not intractable, without status epilepticus; F41.9 Anxiety disorder, unspecified; F32.A Depression, unspecified; R65.20 Severe sepsis without septic shock; F79 Unspecified intellectual disabilities; Z11.52 Encounter for screening for COVID-19; Z88.8 Allergy status to other drugs, medicaments and biological substances; Z87.01 Personal history of pneumonia (recurrent); Z98.890 Other specified postprocedural states; Z86.16 Personal history of COVID-19; Z79.1 Long term (current) use of non-steroidal anti-inflammatories (NSAID); Z79.2 Long term (current) use of antibiotics; Z79.899 Other long term (current) drug therapy
CPT/HCPCS: 0241U; 36415; 70491; 70491-26; 71045; 71045-26; 80053; 81001; 83605; 83735; 85025; 85027; 85610; 86140; 87040; 94760; 94761; 96361; 96365; 99239; 99285; 99285-25; A9270-GY; C1758; J0456; J0696; J1650; J2543; J3475; J3490; J7030; J7040; J7050; Q9967

== ENCOUNTER 2023-04-14 13:53 | Emergency (ER) | payer MEDICAID ==
[2023-04-14] MEDS ORDERED: Sodium Chloride 0.9% 1,000 ML IV ONE (14:21)
[2023-04-14] MEDS ORDERED: Sodium Chloride 0.9% 10 ML Syringe FLUSH PRN (14:21)
[2023-04-14 14:58] LABS: BASOPHILS ABSOLUTE AUTO 0.1 K/mm3 (0.0-0.2); BASOPHILS PERCENT AUTO 0.9 % (0.0-1.0); EOSINOPHILS ABSOLUTE AUTO 0.1 K/mm3 (0.0-0.4); EOSINOPHILS PERCENT AUTO 1.9 % (0.0-6.0); HEMATOCRIT 37.6 % (42.0-52.0); IMMATURE GRAN ABSOLUTE AUTO 0.32 K/mm3 (0.00-0.05); LYMPHOCYTES ABSOLUTE AUTO 1.2 K/mm3 (1.0-4.8); LYMPHOCYTES PERCENT AUTO 21.9 % (24.0-44.0); MEAN CORPUSCULAR HEMOGLOBIN 30.2 pg (28.0-32.0); MEAN CORPUSCULAR HGB CONC 31.9 g/dl (32.0-36.0); MEAN CORPUSCULAR VOLUME 94.7 fl (83.0-99.0); MONOCYTES ABSOLUTE AUTO 0.3 K/mm3 (0.0-0.8); MONOCYTES PERCENT AUTO 5.3 % (0.0-8.0); NEUTROPHILS ABSOLUTE AUTO 3.4 K/mm3 (1.8-7.7); RED BLOOD CELL COUNT 3.97 M/mm3 (4.52-5.90)
[2023-04-14 15:00] LABS: PLATELET COUNT,PLT 271 K/mm3 (150-400)
[2023-04-14] MEDS ORDERED: Albuterol/Ipratropium 3.0-0.5 MG/3 ML Neb Soln NEB ONE (15:09)
[2023-04-14 15:23] LABS: LACTIC ACID < 0.3 mmol/L (0.4-2.0)
[2023-04-14 15:26] LABS: A/G RATIO 0.5 (1-2); ALBUMIN 2.6 g/dl (3.4-5.0); ANION GAP 10.2 (5-15); BILIRUBIN TOTAL 0.2 mg/dL (0.2-1.0); C-REACTIVE PROTEIN 11.5 mg/dL (<1.0); CREATININE 0.8 mg/dL (0.7-1.3); EST CRCL DRUG DOSING (CG) 158.41 mL/min; POTASSIUM,K 4.2 mEq/L (3.5-5.1); PROTEIN TOTAL,TP 7.6 g/dl (6.4-8.2)
[2023-04-14 16:51] LABS: A/G RATIO 0.5 (1-2); ALBUMIN 2.3 g/dl (3.4-5.0); ANION GAP 11.7 (5-15); BILIRUBIN TOTAL 0.1 mg/dL (0.2-1.0); BUN/CREATININE RATIO 13.8 (14-18); C-REACTIVE PROTEIN 10.4 mg/dL (<1.0); CALCIUM 8.4 mg/dL (8.5-10.1); CREATININE 0.8 mg/dL (0.7-1.3); EST CRCL DRUG DOSING (CG) 158.41 mL/min; PROTEIN TOTAL,TP 6.8 g/dl (6.4-8.2)
[2023-04-14 16:53] LABS: POTASSIUM,K 3.7 mEq/L (3.5-5.1)
== END 2023-04-14 18:40 | disposition home or self-care (01) ==
LOC: JD.ED 13:53
DX: J18.9 Pneumonia, unspecified organism (principal); E86.0 Dehydration; Z88.8 Allergy status to other drugs, medicaments and biological substances; Z79.899 Other long term (current) drug therapy; Z79.2 Long term (current) use of antibiotics; Z86.16 Personal history of COVID-19; Z20.822 Contact with and (suspected) exposure to COVID-19
CPT/HCPCS: 36415; 71045; 80053; 83605; 85025; 86140; 87635; 87651; 94640; 96360; 99284; J7030; J7620-GY; U0002

== ENCOUNTER 2023-04-17 21:29 | Emergency (ER) | payer MEDICAID ==
[2023-04-17] MEDS ORDERED: Metoclopramide 10 MG/2 ML SDV IVPUSH ONE (22:54)
[2023-04-17] MEDS ORDERED: diphenhydrAMINE 50 MG/ML SDV IVPUSH ONE (22:55)
[2023-04-17] MEDS ORDERED: Dextrose 5%-Lactated Ringers 1,000 ML IV SCH (23:00)
[2023-04-17 23:20] LABS: BASOPHILS ABSOLUTE AUTO 0.1 K/mm3 (0.0-0.2); EOSINOPHILS ABSOLUTE AUTO 0.2 K/mm3 (0.0-0.4); EOSINOPHILS PERCENT AUTO 2.6 % (0.0-6.0); HEMATOCRIT 37.7 % (42.0-52.0); HEMOGLOBIN 12.1 gm/dl (14.0-18.0); IMMATURE GRAN ABSOLUTE AUTO 0.53 K/mm3 (0.00-0.05); IMMATURE GRAN PERCENT AUTO 7.6 % (0.0-0.4); LYMPHOCYTES ABSOLUTE AUTO 1.4 K/mm3 (1.0-4.8); LYMPHOCYTES PERCENT AUTO 20.6 % (24.0-44.0); MEAN CORPUSCULAR HEMOGLOBIN 30.3 pg (28.0-32.0); MEAN CORPUSCULAR HGB CONC 32.1 g/dl (32.0-36.0); MEAN CORPUSCULAR VOLUME 94.5 fl (83.0-99.0); MEAN PLATELET VOLUME 9.3 fl (9.4-12.4); MONOCYTES ABSOLUTE AUTO 0.4 K/mm3 (0.0-0.8); MONOCYTES PERCENT AUTO 5.8 % (0.0-8.0); NEUTROPHILS ABSOLUTE AUTO 4.3 K/mm3 (1.8-7.7); NEUTROPHILS PERCENT AUTO 62.4 % (41.0-71.0); RED BLOOD CELL COUNT 3.99 M/mm3 (4.52-5.90); WHITE BLOOD CELL COUNT,WBC 6.95 K/mm3 (3.9-11.3)
[2023-04-17 23:42] LABS: PLATELET COUNT,PLT 358 K/mm3 (150-400)
[2023-04-17 23:47] LABS: LACTIC ACID 0.4 mmol/L (0.4-2.0)
[2023-04-17 23:52] LABS: INR 1.17; PROTHROMBIN TIME 12.4 SECONDS (9.7-12.0)
[2023-04-17 23:54] LABS: A/G RATIO 0.6 (1-2); ALANINE AMINOTRANSFERASE,ALT 60 U/L (16-63); ALBUMIN 2.8 g/dl (3.4-5.0); ALKALINE PHOSPHATASE 116 U/L (46-116); ANION GAP 11.6 (5-15); ASPARTATE AMNIOTRANSFERASE,AST 39 U/L (15-37); BILIRUBIN TOTAL 0.2 mg/dL (0.2-1.0); BLOOD UREA NITROGEN,BUN 6 mg/dL (7-18); BUN/CREATININE RATIO 7.5 (14-18); CALCIUM 9.1 mg/dL (8.5-10.1); CARBON DIOXIDE,CO2 29 mEq/L (21-32); CHLORIDE,CL 106 mEq/L (98-107); CREATININE 0.8 mg/dL (0.7-1.3); ESTIMATED GFR 123 mL/min (>60); GLUCOSE RANDOM 101 mg/dL (70-99); LIPASE 39 U/L (16-77); POTASSIUM,K 3.6 mEq/L (3.5-5.1); PROTEIN TOTAL,TP 7.3 g/dl (6.4-8.2); SODIUM,NA 143 mEq/L (136-145)
[2023-04-18] MEDS ORDERED: LORazepam 2 MG/ML SDV IVPUSH ONE (02:25)
[2023-04-18] MEDS ORDERED: Dextrose 5%-Lactated Ringers 1,000 ML IV SCH (02:30)
== END 2023-04-18 09:22 | disposition home or self-care (01) ==
LOC: JD.ED 21:29
DX: R11.14 Bilious vomiting (principal); R19.7 Diarrhea, unspecified; J18.9 Pneumonia, unspecified organism; T50.905A Adverse effect of unspecified drugs, medicaments and biological substances, initial encounter; Z79.899 Other long term (current) drug therapy; Z86.16 Personal history of COVID-19; Z88.8 Allergy status to other drugs, medicaments and biological substances
CPT/HCPCS: 36415; 71045; 80053; 82010; 83605; 83690; 83735; 83880; 85025; 85610; 86140; 93005; 96361; 96374; 96375; 99285; J1200; J2060; J2765; J7121; 93010; 99284

== ENCOUNTER 2023-04-26 09:22 | Emergency (ER) | payer MEDICAID ==
[2023-04-26] MEDS ORDERED: Ondansetron 4 MG/2 ML SDV IVPUSH ONE (10:27)
[2023-04-26] MEDS ORDERED: Sodium Chloride 0.9% 10 ML Syringe FLUSH PRN (10:27)
[2023-04-26] MEDS ORDERED: Sodium Chloride 0.9% 1,000 ML IV SCH (10:30)
[2023-04-26] MEDS ORDERED: Sodium Chloride 0.9% 10 ML Syringe FLUSH ONE (10:37)
[2023-04-26] MEDS ORDERED: Iopamidol 612 MG/ML 100 ML Bottle IVPUSH ONE (10:37)
[2023-04-26 12:21] LABS: BASOPHILS PERCENT AUTO 0.7 % (0.0-1.0); EOSINOPHILS PERCENT AUTO 0.5 % (0.0-6.0); HEMATOCRIT 45.2 % (42.0-52.0); HEMOGLOBIN 14.4 gm/dl (14.0-18.0); IMMATURE GRAN ABSOLUTE AUTO 0.02 K/mm3 (0.00-0.05); IMMATURE GRAN PERCENT AUTO 0.4 % (0.0-0.4); LYMPHOCYTES ABSOLUTE AUTO 1.7 K/mm3 (1.0-4.8); LYMPHOCYTES PERCENT AUTO 30.4 % (24.0-44.0); MEAN CORPUSCULAR HEMOGLOBIN 30.1 pg (28.0-32.0); MEAN CORPUSCULAR HGB CONC 31.9 g/dl (32.0-36.0); MEAN CORPUSCULAR VOLUME 94.4 fl (83.0-99.0); MEAN PLATELET VOLUME 9.3 fl (9.4-12.4); MONOCYTES ABSOLUTE AUTO 0.3 K/mm3 (0.0-0.8); MONOCYTES PERCENT AUTO 5.8 % (0.0-8.0); NEUTROPHILS ABSOLUTE AUTO 3.5 K/mm3 (1.8-7.7); NEUTROPHILS PERCENT AUTO 62.2 % (41.0-71.0); PLATELET COUNT,PLT 247 K/mm3 (150-400); RED BLOOD CELL COUNT 4.79 M/mm3 (4.52-5.90); WHITE BLOOD CELL COUNT,WBC 5.65 K/mm3 (3.9-11.3)
[2023-04-26 12:42] LABS: A/G RATIO 0.6 (1-2); ALBUMIN 2.7 g/dl (3.4-5.0); ANION GAP 11.4 (5-15); BILIRUBIN TOTAL 0.4 mg/dL (0.2-1.0); BUN/CREATININE RATIO 13.3 (14-18); CALCIUM 9.2 mg/dL (8.5-10.1); CREATININE 0.9 mg/dL (0.7-1.3); EST CRCL DRUG DOSING (CG) 140.81 mL/min; MAGNESIUM 1.9 mg/dL (1.8-2.4); POTASSIUM,K 4.4 mEq/L (3.5-5.1); PROTEIN TOTAL,TP 7.4 g/dl (6.4-8.2)
[2023-04-26 12:53] LABS: APPEARANCE,URINE SLT CLOUDY (Clear); BILIRUBIN,URINE 1+ (Negative); COLOR,URINE YELLOW (Yellow); GLUCOSE,URINE NEGATIVE (Negative); KETONES,URINE 1+ (Negative); LEUKOCYTE ESTERASE,URINE NEGATIVE (Negative); NITRITE,URINE NEGATIVE (Negative); OCCULT BLOOD,URINE NEGATIVE (Negative); PH,URINE 6.5 (5.0-8.0); PROTEIN,URINE 1+ (Negative); UROBILINOGEN,URINE 0.2 (0.2-1.0)
[2023-04-26 14:15] LABS: BACTERIA,URINE RARE /hpf (FEW); EPITHELIAL CELLS,URINE 0-5 /hpf (0-5); MUCUS,URINE MODERATE /hpf (FEW); RBC,URINE 0-5 /hpf (0-5)
== END 2023-04-26 16:08 | disposition home or self-care (01) ==
LOC: JD.ED 09:22
DX: R11.14 Bilious vomiting (principal); K59.09 Other constipation; Z86.16 Personal history of COVID-19; Z88.8 Allergy status to other drugs, medicaments and biological substances; Z79.899 Other long term (current) drug therapy
CPT/HCPCS: 36415; 71045; 74177; 80053; 81001; 83690; 83735; 84484; 85025; 87045; 87046; 87493; 87899; 93005; 96361; 96374; 99284; C1758; J2405; J3490; J7030; Q9967; 93010

== ENCOUNTER 2023-08-17 13:37 | Emergency (ER) | payer MEDICAID ==
[2023-08-17] MEDS: Sodium Chloride 0.9% 10 ML Syringe FLUSH PRN (15:22)
[2023-08-17] MEDS: Iopamidol 612 MG/ML 100 ML Bottle IVPUSH ONE (15:23)
[2023-08-17 15:55] LABS: BASOPHILS PERCENT AUTO 0.3 % (0.0-1.0); EOSINOPHILS ABSOLUTE AUTO 0.1 K/mm3 (0.0-0.4); EOSINOPHILS PERCENT AUTO 1.2 % (0.0-6.0); HEMATOCRIT 43.4 % (42.0-52.0); IMMATURE GRAN ABSOLUTE AUTO 0.02 K/mm3 (0.00-0.05); IMMATURE GRAN PERCENT AUTO 0.3 % (0.0-0.4); LYMPHOCYTES ABSOLUTE AUTO 1.6 K/mm3 (1.0-4.8); LYMPHOCYTES PERCENT AUTO 23.8 % (24.0-44.0); MEAN CORPUSCULAR HEMOGLOBIN 29.6 pg (28.0-32.0); MEAN CORPUSCULAR HGB CONC 32.3 g/dl (32.0-36.0); MEAN CORPUSCULAR VOLUME 91.8 fl (83.0-99.0); MEAN PLATELET VOLUME 9.5 fl (9.4-12.4); MONOCYTES ABSOLUTE AUTO 0.5 K/mm3 (0.0-0.8); MONOCYTES PERCENT AUTO 7.5 % (0.0-8.0); NEUTROPHILS ABSOLUTE AUTO 4.5 K/mm3 (1.8-7.7); NEUTROPHILS PERCENT AUTO 66.9 % (41.0-71.0); PLATELET COUNT,PLT 169 K/mm3 (150-400); RED BLOOD CELL COUNT 4.73 M/mm3 (4.52-5.90); WHITE BLOOD CELL COUNT,WBC 6.76 K/mm3 (3.9-11.3)
[2023-08-17 16:32] LABS: A/G RATIO 0.8 (1-2); ALBUMIN 3.2 g/dl (3.4-5.0); ANION GAP 9.1 (5-15); BILIRUBIN TOTAL 0.2 mg/dL (0.2-1.0); CALCIUM 8.8 mg/dL (8.5-10.1); CREATININE 0.9 mg/dL (0.7-1.3); EST CRCL DRUG DOSING (CG) 136.87 mL/min; POTASSIUM,K 4.1 mEq/L (3.5-5.1); PROTEIN TOTAL,TP 7.3 g/dl (6.4-8.2)
[2023-08-17] MEDS: Lactated Ringers 1,000 ML IV SCH (17:28)
[2023-08-17 18:11] LABS: APPEARANCE,URINE CLEAR (Clear); BILIRUBIN,URINE NEGATIVE (Negative); COLOR,URINE YELLOW (Yellow); GLUCOSE,URINE NEGATIVE (Negative); KETONES,URINE TRACE (Negative); LEUKOCYTE ESTERASE,URINE NEGATIVE (Negative); NITRITE,URINE NEGATIVE (Negative); OCCULT BLOOD,URINE 1+ (Negative); PH,URINE 8.5 (5.0-8.0); PROTEIN,URINE 1+ (Negative); UROBILINOGEN,URINE 0.2 (0.2-1.0)
[2023-08-17 18:16] LABS: CORONAVIRUS COVID-19 NAA NEGATIVE (NEGATIVE); INFLUENZA A NAA NEGATIVE (NEGATIVE); RESPIRATORY SYNCYTIAL VIR NAA NEGATIVE (NEGATIVE)
[2023-08-17 18:25] LABS: BACTERIA,URINE FEW /hpf (FEW); MUCUS,URINE FEW /hpf (FEW); RBC,URINE 20-30 /hpf (0-5); SQUAMOUS EPITHELIAL CELLS,UR 0-5 /hpf (0-5); WBC,URINE 0-5 /hpf (0-5)
[2023-08-17] MEDS: Sulfamethoxazole/Trimethoprim 800-160 MG Tab PO ONE (19:30)
== END 2023-08-17 19:44 | disposition home or self-care (01) ==
LOC: JD.ED 13:37
DX: K56.7 Ileus, unspecified (principal); N20.0 Calculus of kidney; R16.1 Splenomegaly, not elsewhere classified; J90 Pleural effusion, not elsewhere classified; Z86.16 Personal history of COVID-19; Z79.899 Other long term (current) drug therapy; Z88.8 Allergy status to other drugs, medicaments and biological substances
CPT/HCPCS: 0241U; 36415; 74177; 80053; 81001; 85025; 99284; A9270; C1758; J3490; J7120; Q9967

== ENCOUNTER 2024-02-02 08:32 | Inpatient (IN) | payer MEDICAID ==
[2024-02-02] MEDS ORDERED: Sodium Chloride 0.9% 10 ML Syringe FLUSH PRN (09:05)
[2024-02-02] MEDS ORDERED: Sodium Chloride 0.9% 2,000 ML IV ONE (09:17)
[2024-02-02] MEDS: Sodium Chloride 0.9% 1,000 ML IV SCH ×2 (09:37→23:45)
[2024-02-02 10:00] LABS: BASOPHILS PERCENT AUTO 0.1 % (0.0-1.0); EOSINOPHILS PERCENT AUTO 0.1 % (0.0-6.0); HEMATOCRIT 45.2 % (42.0-52.0); HEMOGLOBIN 14.8 gm/dl (14.0-18.0); IMMATURE GRAN ABSOLUTE AUTO 0.03 K/mm3 (0.00-0.05); IMMATURE GRAN PERCENT AUTO 0.3 % (0.0-0.4); LYMPHOCYTES ABSOLUTE AUTO 0.6 K/mm3 (1.0-4.8); LYMPHOCYTES PERCENT AUTO 6.5 % (24.0-44.0); MEAN CORPUSCULAR HEMOGLOBIN 31.1 pg (28.0-32.0); MEAN CORPUSCULAR HGB CONC 32.7 g/dl (32.0-36.0); MEAN PLATELET VOLUME 9.5 fl (9.4-12.4); MONOCYTES ABSOLUTE AUTO 0.6 K/mm3 (0.0-0.8); MONOCYTES PERCENT AUTO 6.4 % (0.0-8.0); NEUTROPHILS ABSOLUTE AUTO 8.3 K/mm3 (1.8-7.7); NEUTROPHILS PERCENT AUTO 86.6 % (41.0-71.0); PLATELET COUNT,PLT 158 K/mm3 (150-400); RED BLOOD CELL COUNT 4.76 M/mm3 (4.52-5.90); WHITE BLOOD CELL COUNT,WBC 9.63 K/mm3 (3.9-11.3)
[2024-02-02] MEDS: cefTRIAXone 1 GM in Sodium Chloride 0.9% 100 ML IV ONE (10:11)
[2024-02-02 10:22] LABS: A/G RATIO 0.7 (1-2); ALBUMIN 3.5 g/dl (3.4-5.0); ANION GAP 11.2 (5-15); BILIRUBIN TOTAL 0.3 mg/dL (0.2-1.0); BUN/CREATININE RATIO 16.7 (14-18); CALCIUM 9.7 mg/dL (8.5-10.1); CREATININE 0.9 mg/dL (0.7-1.3); EST CRCL DRUG DOSING (CG) 135.63 mL/min; POTASSIUM,K 4.2 mEq/L (3.5-5.1); PROTEIN TOTAL,TP 8.4 g/dl (6.4-8.2)
[2024-02-02 10:24] LABS: LACTIC ACID 1.2 mmol/L (0.4-2.0)
[2024-02-02 10:27] LABS: CORONAVIRUS COVID-19 NAA NEGATIVE (NEGATIVE); INFLUENZA A NAA NEGATIVE (NEGATIVE); RESPIRATORY SYNCYTIAL VIR NAA NEGATIVE (NEGATIVE)
[2024-02-02] MEDS: cefTRIAXone 1 GM Vial IVPUSH ONE (10:55)
[2024-02-02] MEDS: cefTRIAXone 500 MG Vial IVPUSH ONE (11:05)
[2024-02-02 13:00] LABS: APPEARANCE,URINE CLEAR (Clear); BILIRUBIN,URINE 1+ (Negative); COLOR,URINE YELLOW (Yellow); GLUCOSE,URINE NEGATIVE (Negative); KETONES,URINE 2+ (Negative); LEUKOCYTE ESTERASE,URINE NEGATIVE (Negative); NITRITE,URINE NEGATIVE (Negative); OCCULT BLOOD,URINE NEGATIVE (Negative); PH,URINE 6.5 (5.0-8.0); PROTEIN,URINE 1+ (Negative); UROBILINOGEN,URINE 0.2 (0.2-1.0)
[2024-02-02 13:15] LABS: BACTERIA,URINE FEW /hpf (FEW); MUCUS,URINE MODERATE /hpf (FEW); RBC,URINE 0-5 /hpf (0-5); SQUAMOUS EPITHELIAL CELLS,UR 0-5 /hpf (0-5); WBC,URINE 0-5 /hpf (0-5)
[2024-02-02] MEDS: Ketorolac 30 MG/ML SDV IVPUSH ONE (15:29)
[2024-02-02] MEDS: Acetaminophen 650 MG Supp RECTAL ONE (17:03)
[2024-02-02] MEDS ORDERED: Acetaminophen 325 MG Tab PO PRN (17:35)
[2024-02-02] MEDS ORDERED: Cefepime 2 GM in Sodium Chloride 0.9% 50 ML IV SCH (18:15)
[2024-02-02] MEDS: guaiFENesin 600 MG Tab.ER PO SCH (20:13)
[2024-02-02] MEDS: Divalproex Sodium Delayed-Release 500 MG Tab.CR PO SCH (20:13)
[2024-02-02] MEDS: Cefepime 2 GM in Sodium Chloride 0.9% 50 ML IV SCH (20:13)
[2024-02-02] MEDS ORDERED: LORazepam 2 MG/ML SDV IVPUSH PRN (20:52)
[2024-02-02] MEDS ORDERED: RUFINAMIDE 400 MG PO SCH ×2 (21:00)
[2024-02-02] MEDS: Sertraline 50 MG Tab PO SCH (21:26)
[2024-02-02] MEDS: Divalproex Sodium Delayed-Release 250 MG Tab.CR PO SCH (21:30)
[2024-02-02] MEDS: Melatonin 3 MG Tab PO SCH (21:31)
[2024-02-02] MEDS: lamoTRIgine 100 MG Tab PO SCH (21:31)
[2024-02-02] MEDS: Acetaminophen 325 MG Supp RECTAL PRN (23:45)
[2024-02-03 05:33] LABS: BASOPHILS PERCENT AUTO 0.2 % (0.0-1.0); HEMATOCRIT 37.8 % (42.0-52.0); IMMATURE GRAN ABSOLUTE AUTO 0.04 K/mm3 (0.00-0.05); IMMATURE GRAN PERCENT AUTO 0.3 % (0.0-0.4); LYMPHOCYTES ABSOLUTE AUTO 0.9 K/mm3 (1.0-4.8); LYMPHOCYTES PERCENT AUTO 7.4 % (24.0-44.0); MEAN CORPUSCULAR HEMOGLOBIN 30.7 pg (28.0-32.0); MEAN CORPUSCULAR HGB CONC 32.5 g/dl (32.0-36.0); MEAN CORPUSCULAR VOLUME 94.3 fl (83.0-99.0); MEAN PLATELET VOLUME 10.1 fl (9.4-12.4); MONOCYTES PERCENT AUTO 7.9 % (0.0-8.0); NEUTROPHILS ABSOLUTE AUTO 10.5 K/mm3 (1.8-7.7); NEUTROPHILS PERCENT AUTO 84.2 % (41.0-71.0); PLATELET COUNT,PLT 131 K/mm3 (150-400); RED BLOOD CELL COUNT 4.01 M/mm3 (4.52-5.90)
[2024-02-03 05:34] LABS: ANION GAP 14.2 (5-15); C-REACTIVE PROTEIN 24.23 mg/dL (<0.30); CALCIUM 8.5 mg/dL (8.5-10.1); EST CRCL DRUG DOSING (CG) 122.07 mL/min; HEMOGLOBIN 12.3 gm/dl (14.0-18.0); POTASSIUM,K 4.2 mEq/L (3.5-5.1)
[2024-02-03] MEDS: Doxycycline 100 MG in Sodium Chloride 0.9% 100 ML IV SCH (09:04)
[2024-02-03] MEDS: Enoxaparin 40 MG/0.4 ML Syringe SUBCUT SCH (09:04)
[2024-02-03] MEDS: Polyethylene Glycol 3350 Powder 17 GM Packet PO SCH (10:03)
[2024-02-03] MEDS: Docusate Sodium 100 MG Cap PO SCH (10:35)
[2024-02-03] MEDS: Sennosides 8.6 MG Tab PO SCH (10:36)
[2024-02-03] MEDS: Dextrose 5%-0.45% NaCl 1,000 ML IV SCH (11:46)
[2024-02-03] MEDS ORDERED: LINZESS 145 MCG PO SCH (12:30)
[2024-02-03] MEDS: SODIUM CHLORIDE 0.9% IV SCH (12:38)
[2024-02-03] MEDS: VALPROATE SODIUM IV SCH (12:38)
[2024-02-03] MEDS ORDERED: MIDAZOLAM 5 MG NAS PRN (15:04)
[2024-02-03] MEDS: Rosuvastatin 10 MG Tab PO SCH (21:55)
[2024-02-04 06:37] LABS: BASOPHILS PERCENT AUTO 0.2 % (0.0-1.0); HEMATOCRIT 34.2 % (42.0-52.0); HEMOGLOBIN 11.5 gm/dl (14.0-18.0); IMMATURE GRAN ABSOLUTE AUTO 0.04 K/mm3 (0.00-0.05); IMMATURE GRAN PERCENT AUTO 0.5 % (0.0-0.4); LYMPHOCYTES ABSOLUTE AUTO 0.6 K/mm3 (1.0-4.8); LYMPHOCYTES PERCENT AUTO 7.1 % (24.0-44.0); MEAN CORPUSCULAR HEMOGLOBIN 30.9 pg (28.0-32.0); MEAN CORPUSCULAR HGB CONC 33.6 g/dl (32.0-36.0); MEAN CORPUSCULAR VOLUME 91.9 fl (83.0-99.0); MEAN PLATELET VOLUME 9.5 fl (9.4-12.4); MONOCYTES ABSOLUTE AUTO 0.6 K/mm3 (0.0-0.8); NEUTROPHILS PERCENT AUTO 85.2 % (41.0-71.0); PLATELET COUNT,PLT 116 K/mm3 (150-400); RED BLOOD CELL COUNT 3.72 M/mm3 (4.52-5.90); WHITE BLOOD CELL COUNT,WBC 8.17 K/mm3 (3.9-11.3)
[2024-02-04 07:01] LABS: A/G RATIO 0.6 (1-2); ALANINE AMINOTRANSFERASE,ALT 27 U/L (16-63); ALBUMIN 2.3 g/dl (3.4-5.0); ALKALINE PHOSPHATASE 118 U/L (46-116); ANION GAP 9.3 (5-15); ASPARTATE AMNIOTRANSFERASE,AST 40 U/L (15-37); BILIRUBIN TOTAL 0.5 mg/dL (0.2-1.0); BLOOD UREA NITROGEN,BUN 8 mg/dL (7-18); BUN/CREATININE RATIO 8.9 (14-18); CALCIUM 8.1 mg/dL (8.5-10.1); CARBON DIOXIDE,CO2 27 mEq/L (21-32); CHLORIDE,CL 104 mEq/L (98-107); CREATININE 0.9 mg/dL (0.7-1.3); EST CRCL DRUG DOSING (CG) 135.63 mL/min; ESTIMATED GFR 118 mL/min (>60); GLUCOSE RANDOM 112 mg/dL (70-99); POTASSIUM,K 3.3 mEq/L (3.5-5.1); PROTEIN TOTAL,TP 6.4 g/dl (6.4-8.2); SODIUM,NA 137 mEq/L (136-145)
[2024-02-04 07:02] LABS: C-REACTIVE PROTEIN > 25.00 mg/dL (<0.30)
[2024-02-04] MEDS: Sodium Chloride 0.9% 1,000 ML IV SCH (12:00)
[2024-02-04] MEDS: hydrOXYzine HCl 25 MG Tab PO SCH (14:05)
[2024-02-05 06:32] LABS: BASOPHILS PERCENT AUTO 0.3 % (0.0-1.0); EOSINOPHILS PERCENT AUTO 0.2 % (0.0-6.0); HEMATOCRIT 34.3 % (42.0-52.0); HEMOGLOBIN 11.5 gm/dl (14.0-18.0); IMMATURE GRAN ABSOLUTE AUTO 0.04 K/mm3 (0.00-0.05); IMMATURE GRAN PERCENT AUTO 0.6 % (0.0-0.4); LYMPHOCYTES ABSOLUTE AUTO 0.7 K/mm3 (1.0-4.8); LYMPHOCYTES PERCENT AUTO 10.8 % (24.0-44.0); MEAN CORPUSCULAR HEMOGLOBIN 30.6 pg (28.0-32.0); MEAN CORPUSCULAR HGB CONC 33.5 g/dl (32.0-36.0); MEAN CORPUSCULAR VOLUME 91.2 fl (83.0-99.0); MEAN PLATELET VOLUME 10.2 fl (9.4-12.4); MONOCYTES ABSOLUTE AUTO 0.6 K/mm3 (0.0-0.8); MONOCYTES PERCENT AUTO 9.8 % (0.0-8.0); NEUTROPHILS ABSOLUTE AUTO 5.1 K/mm3 (1.8-7.7); NEUTROPHILS PERCENT AUTO 78.3 % (41.0-71.0); PLATELET COUNT,PLT 118 K/mm3 (150-400); RED BLOOD CELL COUNT 3.76 M/mm3 (4.52-5.90); WHITE BLOOD CELL COUNT,WBC 6.56 K/mm3 (3.9-11.3)
[2024-02-05 07:01] LABS: A/G RATIO 0.5 (1-2); ALANINE AMINOTRANSFERASE,ALT 33 U/L (16-63); ALBUMIN 2.2 g/dl (3.4-5.0); ALKALINE PHOSPHATASE 115 U/L (46-116); ANION GAP 10.2 (5-15); ASPARTATE AMNIOTRANSFERASE,AST 45 U/L (15-37); BILIRUBIN TOTAL 0.4 mg/dL (0.2-1.0); BLOOD UREA NITROGEN,BUN 10 mg/dL (7-18); BUN/CREATININE RATIO 12.5 (14-18); CALCIUM 8.1 mg/dL (8.5-10.1); CARBON DIOXIDE,CO2 27 mEq/L (21-32); CHLORIDE,CL 107 mEq/L (98-107); CREATININE 0.8 mg/dL (0.7-1.3); EST CRCL DRUG DOSING (CG) 152.59 mL/min; ESTIMATED GFR 122 mL/min (>60); GLUCOSE RANDOM 83 mg/dL (70-99); POTASSIUM,K 3.2 mEq/L (3.5-5.1); PROTEIN TOTAL,TP 6.6 g/dl (6.4-8.2); SODIUM,NA 141 mEq/L (136-145)
[2024-02-05 07:02] LABS: C-REACTIVE PROTEIN > 25.00 mg/dL (<0.30)
[2024-02-05] MEDS: LEVOCARNITINE 330 MG PO SCH (10:17)
[2024-02-05] MEDS: Divalproex Sodium Delayed-Release 500 MG Tab.CR PO SCH (10:33)
[2024-02-05] MEDS: Potassium Chloride 20 MEQ Tab.ER PO ONE (12:08)
[2024-02-05] MEDS ORDERED: Divalproex Sodium Delayed-Release 250 MG Tab.CR PO SCH (21:00)
== END 2024-02-05 15:06 | disposition home or self-care (01) | DRG 871 ==
LOC: JD.ED 08:32 → JD.MS 17:35
PROVIDERS: ADMIT Family Medicine; ATTEND Family Medicine
DX: A41.9 Sepsis, unspecified organism (principal); R06.03 Acute respiratory distress; J18.9 Pneumonia, unspecified organism; J96.01 Acute respiratory failure with hypoxia; J69.0 Pneumonitis due to inhalation of food and vomit; J98.11 Atelectasis; G40.812 Lennox-Gastaut syndrome, not intractable, without status epilepticus; R65.20 Severe sepsis without septic shock; G31.84 Mild cognitive impairment of uncertain or unknown etiology; R62.50 Unspecified lack of expected normal physiological development in childhood; F41.9 Anxiety disorder, unspecified; F32.A Depression, unspecified; K59.09 Other constipation; Z88.8 Allergy status to other drugs, medicaments and biological substances; Z79.899 Other long term (current) drug therapy; Z79.51 Long term (current) use of inhaled steroids; Z86.16 Personal history of COVID-19; Z98.890 Other specified postprocedural states; Z96.82 Presence of neurostimulator
CPT/HCPCS: 0241U; 36415; 51798; 71045; 80048; 80053; 80164; 81001; 82947; 83605; 84145; 85025; 86140; 87040; 87086; 87641; 87899; 94667; 94668; 94760; 94761; 96365; 96375; 99285; A9270-GY; C1758; J0692; J0696; J1650; J1885; J3490; J7030; J7799

== ENCOUNTER 2024-02-06 12:51 | Inpatient (IN) | payer MEDICAID ==
[2024-02-06 14:59] LABS: INR 1.43; PROTHROMBIN TIME 14.8 SECONDS (9.7-12.0)
[2024-02-06 15:08] LABS: BASOPHILS PERCENT AUTO 0.4 % (0.0-1.0); EOSINOPHILS ABSOLUTE AUTO 0.1 K/mm3 (0.0-0.4); EOSINOPHILS PERCENT AUTO 2.1 % (0.0-6.0); HEMATOCRIT 34.3 % (42.0-52.0); HEMOGLOBIN 11.4 gm/dl (14.0-18.0); IMMATURE GRAN ABSOLUTE AUTO 0.09 K/mm3 (0.00-0.05); IMMATURE GRAN PERCENT AUTO 1.7 % (0.0-0.4); LYMPHOCYTES ABSOLUTE AUTO 0.7 K/mm3 (1.0-4.8); LYMPHOCYTES PERCENT AUTO 13.7 % (24.0-44.0); MEAN CORPUSCULAR HEMOGLOBIN 30.6 pg (28.0-32.0); MEAN CORPUSCULAR HGB CONC 33.2 g/dl (32.0-36.0); MEAN CORPUSCULAR VOLUME 92.2 fl (83.0-99.0); MEAN PLATELET VOLUME 10.8 fl (9.4-12.4); MONOCYTES ABSOLUTE AUTO 0.3 K/mm3 (0.0-0.8); MONOCYTES PERCENT AUTO 5.4 % (0.0-8.0); NEUTROPHILS ABSOLUTE AUTO 4.1 K/mm3 (1.8-7.7); NEUTROPHILS PERCENT AUTO 76.7 % (41.0-71.0); PLATELET COUNT,PLT 168 K/mm3 (150-400); RED BLOOD CELL COUNT 3.72 M/mm3 (4.52-5.90); WHITE BLOOD CELL COUNT,WBC 5.33 K/mm3 (3.9-11.3)
[2024-02-06] MEDS: Sodium Chloride 0.9% 500 ML IV SCH (15:13)
[2024-02-06] MEDS: Sodium Chloride 0.9% 10 ML Syringe FLUSH PRN ×2 (15:13→15:15)
[2024-02-06 15:31] LABS: LACTIC ACID 0.6 mmol/L (0.4-2.0)
[2024-02-06 15:40] LABS: A/G RATIO 0.5 (1-2); ALBUMIN 2.3 g/dl (3.4-5.0); ANION GAP 12.3 (5-15); BILIRUBIN TOTAL 0.4 mg/dL (0.2-1.0); CREATININE 0.6 mg/dL (0.7-1.3); EST CRCL DRUG DOSING (CG) 180.02 mL/min; PROTEIN TOTAL,TP 6.9 g/dl (6.4-8.2)
[2024-02-06 15:53] LABS: CALCIUM 8.6 mg/dL (8.5-10.1)
[2024-02-06 15:58] LABS: POTASSIUM,K 4.3 mEq/L (3.5-5.1)
[2024-02-06] MEDS: LORazepam 2 MG/ML SDV IVPUSH ONE (16:11)
[2024-02-06 16:49] LABS: APPEARANCE,URINE CLEAR (Clear); BILIRUBIN,URINE NEGATIVE (Negative); GLUCOSE,URINE NEGATIVE (Negative); KETONES,URINE 2+ (Negative); LEUKOCYTE ESTERASE,URINE NEGATIVE (Negative); NITRITE,URINE NEGATIVE (Negative); OCCULT BLOOD,URINE NEGATIVE (Negative); PH,URINE 6.5 (5.0-8.0); PROTEIN,URINE 2+ (Negative)
[2024-02-06 16:50] LABS: COLOR,URINE AMBER (Yellow)
[2024-02-06 17:33] LABS: BACTERIA,URINE FEW /hpf (FEW); MUCUS,URINE FEW /hpf (FEW); RBC,URINE 0-5 /hpf (0-5); SQUAMOUS EPITHELIAL CELLS,UR 0-5 /hpf (0-5); WBC,URINE 0-5 /hpf (0-5)
[2024-02-06] MEDS ORDERED: Acetaminophen 325 MG Tab PO PRN (18:12)
[2024-02-06] MEDS ORDERED: Ondansetron 4 MG/2 ML SDV IV PRN (18:12)
[2024-02-06] MEDS ORDERED: Albuterol/Ipratropium 3.0-0.5 MG/3 ML Neb Soln INH PRN (18:27)
[2024-02-06] MEDS: Sodium Chloride 0.9% 1,000 ML IV ONE (19:02)
[2024-02-06] MEDS: VALPROATE SODIUM IV SCH (21:52)
[2024-02-06] MEDS: SODIUM CHLORIDE 0.9% IV SCH (21:52)
[2024-02-07 06:47] LABS: HEMATOCRIT 36.5 % (42.0-52.0); HEMOGLOBIN 11.9 gm/dl (14.0-18.0); MEAN CORPUSCULAR HEMOGLOBIN 30.3 pg (28.0-32.0); MEAN CORPUSCULAR HGB CONC 32.6 g/dl (32.0-36.0); MEAN CORPUSCULAR VOLUME 92.9 fl (83.0-99.0); MEAN PLATELET VOLUME 10.6 fl (9.4-12.4); PLATELET COUNT,PLT 158 K/mm3 (150-400); RED BLOOD CELL COUNT 3.93 M/mm3 (4.52-5.90); WHITE BLOOD CELL COUNT,WBC 4.06 K/mm3 (3.9-11.3)
[2024-02-07 07:12] LABS: A/G RATIO 0.5 (1-2); ALBUMIN 2.2 g/dl (3.4-5.0); ANION GAP 11.6 (5-15); BILIRUBIN TOTAL 0.3 mg/dL (0.2-1.0); C-REACTIVE PROTEIN 15.35 mg/dL (<0.30); CALCIUM 8.6 mg/dL (8.5-10.1); CREATININE 0.6 mg/dL (0.7-1.3); EST CRCL DRUG DOSING (CG) 180.02 mL/min; POTASSIUM,K 3.6 mEq/L (3.5-5.1); PROTEIN TOTAL,TP 6.6 g/dl (6.4-8.2)
[2024-02-07] MEDS: Docusate Sodium 100 MG Cap PO SCH (08:05)
[2024-02-07] MEDS: Enoxaparin 40 MG/0.4 ML Syringe SUBCUT SCH (08:05)
[2024-02-07] MEDS: lamoTRIgine 100 MG Tab PO SCH (08:05)
[2024-02-07] MEDS: Divalproex Sodium Delayed-Release 500 MG Tab.CR PO SCH (08:05)
[2024-02-07] MEDS: Sennosides 8.6 MG Tab PO SCH (08:05)
[2024-02-07] MEDS: Lactulose Soln 10 GM/15 ML 30 ML UD Cup PO SCH (08:05)
[2024-02-07] MEDS ORDERED: Non-Formulary Medication 1 Each (Lamotrigine [Lamotrigine] 150 MG Tablet) PO SCH (09:00)
[2024-02-07] MEDS: LEVOCARNITINE 330 MG PO SCH (11:24)
[2024-02-07] MEDS: RUFINAMIDE 400 MG PO SCH (11:25)
[2024-02-07] MEDS: Scopalamine 1mg/3day Transdermal Patch TOP SCH (11:28)
[2024-02-07] MEDS: Sertraline 50 MG Tab PO SCH (20:21)
[2024-02-07] MEDS: Divalproex Sodium Delayed-Release 250 MG Tab.CR PO SCH (20:21)
[2024-02-07] MEDS: Rosuvastatin 10 MG Tab PO SCH (20:22)
[2024-02-08] MEDS: LINACLOTIDE PO SCH (06:34)
[2024-02-08 07:52] LABS: HEMATOCRIT 35.6 % (42.0-52.0); HEMOGLOBIN 11.6 gm/dl (14.0-18.0); MEAN CORPUSCULAR HEMOGLOBIN 30.2 pg (28.0-32.0); MEAN CORPUSCULAR HGB CONC 32.6 g/dl (32.0-36.0); MEAN CORPUSCULAR VOLUME 92.7 fl (83.0-99.0); MEAN PLATELET VOLUME 9.9 fl (9.4-12.4); PLATELET COUNT,PLT 184 K/mm3 (150-400); RED BLOOD CELL COUNT 3.84 M/mm3 (4.52-5.90); WHITE BLOOD CELL COUNT,WBC 5.29 K/mm3 (3.9-11.3)
[2024-02-08 08:13] LABS: A/G RATIO 0.5 (1-2); ALBUMIN 2.2 g/dl (3.4-5.0); ANION GAP 6.2 (5-15); BILIRUBIN TOTAL 0.3 mg/dL (0.2-1.0); C-REACTIVE PROTEIN 8.79 mg/dL (<0.30); CALCIUM 8.2 mg/dL (8.5-10.1); CREATININE 0.6 mg/dL (0.7-1.3); EST CRCL DRUG DOSING (CG) 180.02 mL/min; POTASSIUM,K 3.2 mEq/L (3.5-5.1); PROTEIN TOTAL,TP 6.3 g/dl (6.4-8.2)
[2024-02-08] MEDS: Potassium Chloride 20 MEQ Tab.ER PO ONE (09:46)
== END 2024-02-08 11:42 | disposition home or self-care (01) | DRG 177 ==
LOC: JD.ED 12:51 → JD.MS 17:21
PROVIDERS: ADMIT Internal Medicine; ATTEND Internal Medicine
DX: J98.4 Other disorders of lung (principal); J69.0 Pneumonitis due to inhalation of food and vomit; J96.01 Acute respiratory failure with hypoxia; G40.812 Lennox-Gastaut syndrome, not intractable, without status epilepticus; E87.1 Hypo-osmolality and hyponatremia; F41.9 Anxiety disorder, unspecified; F32.A Depression, unspecified; K59.00 Constipation, unspecified; Z88.8 Allergy status to other drugs, medicaments and biological substances; Z86.16 Personal history of COVID-19; Z79.899 Other long term (current) drug therapy
CPT/HCPCS: 36415; 70450; 71045; 80053; 81001; 82150; 83605; 83690; 85025; 85610; 87040 ×2; 96360; 99285; C1758; J3490 ×2; J7030; 85027; 86140; 87641; 94667; 94668; 94761; 97162-GP; A9270-GY; J1650

== ENCOUNTER 2024-03-20 10:31 | Observation (INO) | payer MEDICAID ==
[~2024-03-20 10:31] MED LIST: Dexamethasone 4 MG/ML 5 ML MDV ONE; HYDROmorphone 0.5 MG/0.5 ML Syringe IVPUSH PRN; Lidocaine 1% 5 ML VIAL ONE; Midazolam 1 MG/ML 2 ML SDV ONE; Ondansetron 4 MG/2 ML SDV IVPUSH PRN; Propofol 200 MG/20 ML SDV ONE; Rocuronium 50 MG/5 ML Vial ONE; Sodium Chloride 0.9% 10 ML Syringe FLUSH PRN; dexmedeTOMIDine HCl 200 MCG/2 ML SDV ONE; fentaNYL 100 MCG/2 ML SDV IVPUSH PRN; fentaNYL 100 MCG/2 ML SDV ONE
[2024-03-20] MEDS ORDERED: LORazepam 2 MG/ML SDV IVPUSH ONE (11:15)
[2024-03-20] MEDS ORDERED: LORazepam 2 MG/ML SDV IVPUSH PRN (11:22)
[2024-03-20] MEDS ORDERED: EPINEPHrine 1 MG/ML SDV ONE (12:03)
[2024-03-20] MEDS ORDERED: ceFAZolin 2 GM Vial ONE (12:32)
[2024-03-20] MEDS ORDERED: Sugammadex Sodium 200 MG/2 ML VIAL IV ONE (13:26)
[2024-03-20] MEDS: Bupivacaine 0.5% 30 ML SDV ONE (13:40)
[2024-03-20] MEDS ORDERED: Ondansetron 4 MG Tab.DIS PO PRN (13:51)
[2024-03-20] MEDS ORDERED: oxyCODONE 5 MG Tab PO PRN (13:51)
[2024-03-20] MEDS ORDERED: Lactated Ringers 1,000 ML IV SCH (14:00)
[2024-03-20] MEDS ORDERED: Metoclopramide 10 MG Tab PO PRN (14:12)
[2024-03-20] MEDS ORDERED: Albuterol/Ipratropium 3.0-0.5 MG/3 ML Neb Soln NEB PRN (14:12)
[2024-03-20] MEDS ORDERED: LORazepam 1 MG Tab PO PRN (14:12)
[2024-03-20] MEDS: Albuterol/Ipratropium 3.0-0.5 MG/3 ML Neb Soln INH PRN (14:52)
[2024-03-20] MEDS: Sodium Chloride 0.9% 10 ML Syringe FLUSH SCH (16:24)
[2024-03-20] MEDS: hydrOXYzine HCl 25 MG Tab PO SCH (16:43)
[2024-03-20] MEDS: Ketorolac 15 MG/ML SDV IM SCH (16:43)
[2024-03-20] MEDS: Lactulose Soln 10 GM/15 ML 30 ML UD Cup PO SCH (16:43)
[2024-03-20] MEDS: Acetaminophen 325 MG Tab PO PRN (17:11)
[2024-03-20] MEDS: Melatonin 3 MG Tab PO SCH (20:22)
[2024-03-20] MEDS: Divalproex Sodium Delayed-Release 250 MG Tab.CR PO SCH (20:22)
[2024-03-20] MEDS: Divalproex Sodium Delayed-Release 500 MG Tab.CR PO SCH (20:22)
[2024-03-20] MEDS: lamoTRIgine 100 MG Tab PO SCH (20:23)
[2024-03-20] MEDS: Rosuvastatin 10 MG Tab PO SCH (20:23)
[2024-03-20] MEDS: Sertraline 50 MG Tab PO SCH (20:23)
[2024-03-20] MEDS: RUFINAMIDE 400 MG PO SCH (20:24)
[2024-03-20] MEDS: Scopalamine 1mg/3day Transdermal Patch TOP SCH (20:34)
[2024-03-20] MEDS: Lactated Ringers 1,000 ML IV SCH (20:35)
[2024-03-20] MEDS ORDERED: Sertraline 50 MG Tab PO SCH (21:00)
[2024-03-21] MEDS ORDERED: PSYLLIUM HUSK 0.4 GM PO SCH (08:00)
[2024-03-21] MEDS: Docusate Sodium 100 MG Cap PO SCH (08:43)
[2024-03-21] MEDS: Sennosides 8.6 MG Tab PO SCH (08:44)
[2024-03-21] MEDS: amLODIPine 2.5 MG Tab PO SCH (08:44)
[2024-03-23] MEDS ORDERED: Remove Patch SCOPE PATCH TRDERM SCH (20:00)
== END 2024-03-21 09:20 | disposition home or self-care (01) ==
LOC: JD.SDS 10:31 → JD.MS 13:51
PROVIDERS: ADMIT Surgery; ATTEND Surgery
DX: Z43.1 Encounter for attention to gastrostomy (principal); J69.0 Pneumonitis due to inhalation of food and vomit; Z88.8 Allergy status to other drugs, medicaments and biological substances; Z79.899 Other long term (current) drug therapy
CPT/HCPCS: 43653; 94760; 94761; A9270; J0171; J0665; J0690; J1100; J2250; J2704; J3010; J3490; J7120; 00790; J7620-GY

== ENCOUNTER 2024-03-23 09:42 | Inpatient (IN) | payer MEDICAID ==
[2024-03-23 11:32] LABS: BASOPHILS PERCENT AUTO 0.2 % (0.0-1.0); EOSINOPHILS ABSOLUTE AUTO 0.1 K/mm3 (0.0-0.4); EOSINOPHILS PERCENT AUTO 0.5 % (0.0-6.0); HEMATOCRIT 42.4 % (42.0-52.0); HEMOGLOBIN 13.8 gm/dl (14.0-18.0); IMMATURE GRAN ABSOLUTE AUTO 0.02 K/mm3 (0.00-0.05); IMMATURE GRAN PERCENT AUTO 0.2 % (0.0-0.4); LYMPHOCYTES ABSOLUTE AUTO 1.1 K/mm3 (1.0-4.8); LYMPHOCYTES PERCENT AUTO 11.8 % (24.0-44.0); MEAN CORPUSCULAR HEMOGLOBIN 30.1 pg (28.0-32.0); MEAN CORPUSCULAR HGB CONC 32.5 g/dl (32.0-36.0); MEAN CORPUSCULAR VOLUME 92.6 fl (83.0-99.0); MEAN PLATELET VOLUME 9.7 fl (9.4-12.4); MONOCYTES ABSOLUTE AUTO 0.5 K/mm3 (0.0-0.8); MONOCYTES PERCENT AUTO 5.2 % (0.0-8.0); NEUTROPHILS ABSOLUTE AUTO 7.5 K/mm3 (1.8-7.7); NEUTROPHILS PERCENT AUTO 82.1 % (41.0-71.0); PLATELET COUNT,PLT 250 K/mm3 (150-400); RED BLOOD CELL COUNT 4.58 M/mm3 (4.52-5.90); WHITE BLOOD CELL COUNT,WBC 9.19 K/mm3 (3.9-11.3)
[2024-03-23 11:38] LABS: A/G RATIO 0.7 (1-2); ALBUMIN 3.5 g/dl (3.4-5.0); ANION GAP 10.8 (5-15); BILIRUBIN TOTAL 0.2 mg/dL (0.2-1.0); BUN/CREATININE RATIO 12.2 (14-18); C-REACTIVE PROTEIN 19.5 mg/dL (<0.30); CALCIUM 9.9 mg/dL (8.5-10.1); CREATININE 0.9 mg/dL (0.7-1.3); EST CRCL DRUG DOSING (CG) 131.73 mL/min; PROTEIN TOTAL,TP 8.7 g/dl (6.4-8.2)
[2024-03-23 11:41] LABS: LACTIC ACID 0.9 mmol/L (0.4-2.0)
[2024-03-23 11:42] LABS: POTASSIUM,K 3.8 mEq/L (3.5-5.1)
[2024-03-23 12:03] LABS: CORONAVIRUS COVID-19 NAA NEGATIVE (NEGATIVE); INFLUENZA A NAA NEGATIVE (NEGATIVE); RESPIRATORY SYNCYTIAL VIR NAA NEGATIVE (NEGATIVE)
[2024-03-23] MEDS: Piperacillin/Tazobactam 4.5 GM in Sodium Chloride 0.9% 100 ML IV ONE (13:37)
[2024-03-23] MEDS ORDERED: Acetaminophen 325 MG Tab PO PRN (13:45)
[2024-03-23] MEDS ORDERED: Ondansetron 4 MG/2 ML SDV IV PRN (13:45)
[2024-03-23] MEDS: Albuterol/Ipratropium 3.0-0.5 MG/3 ML Neb Soln NEB ONE (13:47)
[2024-03-23] MEDS: Albuterol/Ipratropium 3.0-0.5 MG/3 ML Neb Soln NEB SCH (17:19)
[2024-03-23] MEDS: NS + KCl 20mEq/L 1,000 ML IV SCH (17:23)
[2024-03-23] MEDS: Piperacillin/Tazobactam 4.5 GM in Sodium Chloride 0.9% 100 ML IV SCH (17:24)
[2024-03-23] MEDS ORDERED: Divalproex Sodium Delayed-Release 500 MG Tab.CR PO SCH (21:00)
[2024-03-23] MEDS ORDERED: Non-Formulary Medication 1 Each (Lamotrigine [Lamotrigine] 150 MG Tablet) PO SCH (21:00)
[2024-03-23] MEDS: Divalproex Sodium Delayed-Release 500 MG Tab.CR PO SCH (22:01)
[2024-03-23] MEDS: Divalproex Sodium Delayed-Release 250 MG Tab.CR PO SCH (22:01)
[2024-03-23] MEDS: lamoTRIgine 100 MG Tab PO SCH (22:01)
[2024-03-23] MEDS: Sertraline 50 MG Tab PO SCH (22:02)
[2024-03-23] MEDS: Lactulose Soln 10 GM/15 ML 30 ML UD Cup PO SCH (22:02)
[2024-03-23] MEDS: Rosuvastatin 10 MG Tab PO SCH (22:02)
[2024-03-23] MEDS: Melatonin 3 MG Tab PO SCH (22:02)
[2024-03-24 06:21] LABS: HEMATOCRIT 36.1 % (42.0-52.0); MEAN CORPUSCULAR HEMOGLOBIN 30.6 pg (28.0-32.0); MEAN CORPUSCULAR VOLUME 92.8 fl (83.0-99.0); MEAN PLATELET VOLUME 9.9 fl (9.4-12.4); PLATELET COUNT,PLT 186 K/mm3 (150-400); RED BLOOD CELL COUNT 3.89 M/mm3 (4.52-5.90); WHITE BLOOD CELL COUNT,WBC 5.95 K/mm3 (3.9-11.3)
[2024-03-24 06:22] LABS: HEMOGLOBIN 11.9 gm/dl (14.0-18.0)
[2024-03-24 06:49] LABS: A/G RATIO 0.6 (1-2); ALBUMIN 2.6 g/dl (3.4-5.0); ANION GAP 10.9 (5-15); BILIRUBIN TOTAL 0.3 mg/dL (0.2-1.0); BUN/CREATININE RATIO 15.7 (14-18); C-REACTIVE PROTEIN 14.21 mg/dL (<0.30); CALCIUM 8.7 mg/dL (8.5-10.1); CREATININE 0.7 mg/dL (0.7-1.3); EST CRCL DRUG DOSING (CG) 179.4 mL/min; POTASSIUM,K 3.9 mEq/L (3.5-5.1); PROTEIN TOTAL,TP 7.1 g/dl (6.4-8.2)
[2024-03-24] MEDS: Enoxaparin 40 MG/0.4 ML Syringe SUBCUT SCH (08:22)
[2024-03-24] MEDS ORDERED: Lactated Ringers 1,000 ML IV SCH (11:30)
[2024-03-24] MEDS: Sodium Chloride 0.9% 1,000 ML IV SCH (12:38)
[2024-03-24] MEDS: LEVOCARNITINE 330 MG PO SCH (14:37)
[2024-03-24] MEDS: Pravastatin 20 MG Tab PO ONE (22:25)
[2024-03-24] MEDS: Divalproex Sodium Delayed-Release 125 MG Cap.Sprink GTUBE SCH ×2 (22:27)
[2024-03-25 05:48] LABS: HEMATOCRIT 36.3 % (42.0-52.0); HEMOGLOBIN 11.8 gm/dl (14.0-18.0); MEAN CORPUSCULAR HEMOGLOBIN 30.6 pg (28.0-32.0); MEAN CORPUSCULAR HGB CONC 32.5 g/dl (32.0-36.0); MEAN PLATELET VOLUME 9.7 fl (9.4-12.4); PLATELET COUNT,PLT 238 K/mm3 (150-400); RED BLOOD CELL COUNT 3.86 M/mm3 (4.52-5.90); WHITE BLOOD CELL COUNT,WBC 6.02 K/mm3 (3.9-11.3)
[2024-03-25 06:11] LABS: ANION GAP 11.9 (5-15); BUN/CREATININE RATIO 7.5 (14-18); CALCIUM 8.4 mg/dL (8.5-10.1); CREATININE 0.8 mg/dL (0.7-1.3); EST CRCL DRUG DOSING (CG) 156.98 mL/min; MAGNESIUM 1.9 mg/dL (1.8-2.4); PHOSPHORUS 4.1 mg/dL (2.6-4.7); POTASSIUM,K 3.9 mEq/L (3.5-5.1)
[2024-03-25] MEDS: LINACLOTIDE 145 MCG PO SCH (06:45)
[2024-03-25] MEDS ORDERED: LEVOCARNITINE 330 MG PO SCH (08:20)
[2024-03-25] MEDS: Albuterol/Ipratropium 3.0-0.5 MG/3 ML Neb Soln NEB PRN (10:27)
[2024-03-25] MEDS: Scopalamine 1mg/3day Transdermal Patch TOP SCH (11:02)
[2024-03-25] MEDS: Pravastatin 20 MG Tab PO SCH (21:49)
[2024-03-25] MEDS ORDERED: Divalproex Sodium Delayed-Release 125 MG Cap.Sprink PO SCH (21:53)
[2024-03-26 05:58] LABS: ANION GAP 10.7 (5-15); BUN/CREATININE RATIO 7.1 (14-18); C-REACTIVE PROTEIN 4.7 mg/dL (<0.30); CALCIUM 8.7 mg/dL (8.5-10.1); CREATININE 0.7 mg/dL (0.7-1.3); EST CRCL DRUG DOSING (CG) 179.4 mL/min; POTASSIUM,K 3.7 mEq/L (3.5-5.1)
[2024-03-26] MEDS ORDERED: Non-Formulary Medication 1 Each (Linaclotide [Linzess] 145 MCG) PO SCH (06:00)
[2024-03-26] MEDS: RUFINAMIDE 400 MG PO SCH (12:54)
== END 2024-03-27 13:56 | DRG 177 ==
LOC: JD.ED 09:42 → JD.MS 12:42
PROVIDERS: ADMIT Internal Medicine; ATTEND Student in an Organized Health Care Education/Training Program
DX: J18.9 Pneumonia, unspecified organism (principal); J69.0 Pneumonitis due to inhalation of food and vomit; J96.01 Acute respiratory failure with hypoxia; G40.812 Lennox-Gastaut syndrome, not intractable, without status epilepticus; Z66 Do not resuscitate; G40.909 Epilepsy, unspecified, not intractable, without status epilepticus; F41.9 Anxiety disorder, unspecified; F32.A Depression, unspecified; K59.09 Other constipation; Z88.8 Allergy status to other drugs, medicaments and biological substances; Z86.16 Personal history of COVID-19; Z79.899 Other long term (current) drug therapy; Z98.890 Other specified postprocedural states
CPT/HCPCS: 0241U; 36415; 71045; 80048; 80053; 83605; 83735; 84100; 85025; 85027; 86140; 87040; 87641; 94640; 94667; 94668; 94760; 94761; 99285; A9270-GY; J1650; J2543; J3480; J3490; J7030; J7620-GY

== ENCOUNTER 2024-06-17 21:59 | Inpatient (IN) | payer MEDICAID ==
[2024-06-17] MEDS ORDERED: Sodium Chloride 0.9% 10 ML Syringe FLUSH PRN (22:03)
[2024-06-17 22:30] LABS: BASOPHILS PERCENT AUTO 0.2 % (0.0-1.0); EOSINOPHILS PERCENT AUTO 0.1 % (0.0-6.0); HEMATOCRIT 41.2 % (42.0-52.0); HEMOGLOBIN 12.5 gm/dl (14.0-18.0); IMMATURE GRAN ABSOLUTE AUTO 0.07 K/mm3 (0.00-0.05); IMMATURE GRAN PERCENT AUTO 0.8 % (0.0-0.4); LYMPHOCYTES ABSOLUTE AUTO 0.9 K/mm3 (1.0-4.8); MEAN CORPUSCULAR HEMOGLOBIN 28.5 pg (28.0-32.0); MEAN CORPUSCULAR HGB CONC 30.3 g/dl (32.0-36.0); MEAN CORPUSCULAR VOLUME 94.1 fl (83.0-99.0); MEAN PLATELET VOLUME 9.4 fl (9.4-12.4); MONOCYTES ABSOLUTE AUTO 0.5 K/mm3 (0.0-0.8); MONOCYTES PERCENT AUTO 5.6 % (0.0-8.0); NEUTROPHILS ABSOLUTE AUTO 7.7 K/mm3 (1.8-7.7); NEUTROPHILS PERCENT AUTO 83.3 % (41.0-71.0); PLATELET COUNT,PLT 247 K/mm3 (150-400); RED BLOOD CELL COUNT 4.38 M/mm3 (4.52-5.90); WHITE BLOOD CELL COUNT,WBC 9.23 K/mm3 (3.9-11.3)
[2024-06-17] MEDS: Albuterol/Ipratropium 3.0-0.5 MG/3 ML Neb Soln NEB ONE (22:39)
[2024-06-17] MEDS: methylPREDNISolone Sodium Succinate 125 MG/2 ML SDV IVPUSH ONE (22:46)
[2024-06-17 22:54] LABS: A/G RATIO 0.4 (1-2); ALANINE AMINOTRANSFERASE,ALT 37 U/L (16-63); ALBUMIN 2.8 g/dl (3.4-5.0); ALKALINE PHOSPHATASE 130 U/L (46-116); ANION GAP 14.5 (5-15); ASPARTATE AMNIOTRANSFERASE,AST 36 U/L (15-37); BILIRUBIN TOTAL 0.3 mg/dL (0.2-1.0); BLOOD UREA NITROGEN,BUN 33 mg/dL (7-18); C-REACTIVE PROTEIN 13.62 mg/dL (<0.30); CALCIUM 9.1 mg/dL (8.5-10.1); CARBON DIOXIDE,CO2 29 mEq/L (21-32); CHLORIDE,CL 118 mEq/L (98-107); CREATININE 1.1 mg/dL (0.7-1.3); ESTIMATED GFR 93 mL/min (>60); GLUCOSE RANDOM 100 mg/dL (70-99); POTASSIUM,K 3.5 mEq/L (3.5-5.1); PROTEIN TOTAL,TP 9.6 g/dl (6.4-8.2); SODIUM,NA 158 mEq/L (136-145)
[2024-06-17 22:55] LABS: CORONAVIRUS COVID-19 NAA NEGATIVE (NEGATIVE); INFLUENZA A NAA NEGATIVE (NEGATIVE); RESPIRATORY SYNCYTIAL VIR NAA NEGATIVE (NEGATIVE)
[2024-06-17 23:07] LABS: O2 SATURATION ARTERIAL 94.9 % (96.0-97.0)
[2024-06-17 23:08] LABS: BASE EXCESS ARTERIAL 6.4 (-2-2.0); BICARBONATE,ARTERIAL 31.3 meq/L (22.0-26.0)
[2024-06-17] MEDS ORDERED: Acetaminophen 650 MG Supp RECTAL PRN (23:18)
[2024-06-17] MEDS: Clindamycin Phosphate in D5W 600 MG in Premix Bag 1 BAG IV ONE (23:26)
[2024-06-17 23:49] LABS: LACTIC ACID 0.8 mmol/L (0.4-2.0)
[2024-06-18] MEDS: Piperacillin/Tazobactam 4.5 GM in Sodium Chloride 0.9% 100 ML IV ONE (01:18)
[2024-06-18] MEDS: Albuterol/Ipratropium 3.0-0.5 MG/3 ML Neb Soln NEB SCH (02:48)
[2024-06-18 05:39] LABS: BASOPHILS PERCENT AUTO 0.1 % (0.0-1.0); HEMATOCRIT 37.9 % (42.0-52.0); HEMOGLOBIN 11.7 gm/dl (14.0-18.0); IMMATURE GRAN ABSOLUTE AUTO 0.05 K/mm3 (0.00-0.05); IMMATURE GRAN PERCENT AUTO 0.7 % (0.0-0.4); LYMPHOCYTES ABSOLUTE AUTO 0.9 K/mm3 (1.0-4.8); LYMPHOCYTES PERCENT AUTO 12.3 % (24.0-44.0); MEAN CORPUSCULAR HEMOGLOBIN 29.1 pg (28.0-32.0); MEAN CORPUSCULAR HGB CONC 30.9 g/dl (32.0-36.0); MEAN CORPUSCULAR VOLUME 94.3 fl (83.0-99.0); MEAN PLATELET VOLUME 9.9 fl (9.4-12.4); MONOCYTES ABSOLUTE AUTO 0.3 K/mm3 (0.0-0.8); MONOCYTES PERCENT AUTO 4.5 % (0.0-8.0); NEUTROPHILS ABSOLUTE AUTO 5.8 K/mm3 (1.8-7.7); NEUTROPHILS PERCENT AUTO 82.4 % (41.0-71.0); PLATELET COUNT,PLT 238 K/mm3 (150-400); RED BLOOD CELL COUNT 4.02 M/mm3 (4.52-5.90); WHITE BLOOD CELL COUNT,WBC 7.09 K/mm3 (3.9-11.3)
[2024-06-18 06:06] LABS: A/G RATIO 0.4 (1-2); ALANINE AMINOTRANSFERASE,ALT 34 U/L (16-63); ALBUMIN 2.7 g/dl (3.4-5.0); ALKALINE PHOSPHATASE 118 U/L (46-116); ANION GAP 15.6 (5-15); ASPARTATE AMNIOTRANSFERASE,AST 30 U/L (15-37); BILIRUBIN TOTAL 0.2 mg/dL (0.2-1.0); BLOOD UREA NITROGEN,BUN 30 mg/dL (7-18); CALCIUM 9.1 mg/dL (8.5-10.1); CARBON DIOXIDE,CO2 30 mEq/L (21-32); CHLORIDE,CL 119 mEq/L (98-107); ESTIMATED GFR 104 mL/min (>60); GLUCOSE RANDOM 107 mg/dL (70-99); POTASSIUM,K 3.6 mEq/L (3.5-5.1); PROTEIN TOTAL,TP 9.4 g/dl (6.4-8.2)
[2024-06-18] MEDS: Piperacillin/Tazobactam 4.5 GM in Sodium Chloride 0.9% 100 ML IV SCH ×2 (06:06→06:15)
[2024-06-18 06:15] LABS: SODIUM,NA 161 mEq/L (136-145)
[2024-06-18] MEDS: Dextrose 5% in Water 1,000 ML IV SCH (06:38)
[2024-06-18] MEDS ORDERED: Metoclopramide 10 MG Tab PO PRN (09:07)
[2024-06-18] MEDS ORDERED: LORazepam 1 MG Tab PO PRN (09:38)
[2024-06-18] MEDS ORDERED: Metoclopramide 10 MG Tab GTUBE PRN (10:17)
[2024-06-18] MEDS: Docusate Sodium 100 MG Cap PO SCH (10:25)
[2024-06-18] MEDS ORDERED: Divalproex Sodium Delayed-Release 500 MG Tab.CR PO SCH (12:00)
[2024-06-18] MEDS: Divalproex Sodium Delayed-Release 125 MG Cap.Sprink PO SCH (12:50)
[2024-06-18] MEDS: lamoTRIgine 100 MG Tab GTUBE SCH (12:56)
[2024-06-18] MEDS: RUFINAMIDE 400 MG PO SCH (12:58)
[2024-06-18] MEDS: Lactulose Soln 10 GM/15 ML 30 ML UD Cup PO SCH (12:58)
[2024-06-18 14:13] LABS: ANION GAP 13.4 (5-15); BLOOD UREA NITROGEN,BUN 24 mg/dL (7-18); BUN/CREATININE RATIO 26.7 (14-18); CALCIUM 8.9 mg/dL (8.5-10.1); CARBON DIOXIDE,CO2 31 mEq/L (21-32); CHLORIDE,CL 118 mEq/L (98-107); CREATININE 0.9 mg/dL (0.7-1.3); ESTIMATED GFR 118 mL/min (>60); GLUCOSE RANDOM 111 mg/dL (70-99); POTASSIUM,K 3.4 mEq/L (3.5-5.1); SODIUM,NA 159 mEq/L (136-145)
[2024-06-18] MEDS: LEVOCARNITINE 330 MG GTUBE SCH (14:24)
[2024-06-18] MEDS: Potassium Chloride 40 MEQ in Dextrose 5% in Water 1,000 ML IV SCH (15:26)
[2024-06-18] MEDS: Polyethylene Glycol 3350 Powder 17 GM Packet GTUBE SCH (15:32)
[2024-06-18] MEDS: Melatonin 3 MG Tab GTUBE SCH (20:34)
[2024-06-18] MEDS: Rosuvastatin 10 MG Tab GTUBE SCH (20:35)
[2024-06-18] MEDS: Divalproex Sodium Delayed-Release 125 MG Cap.Sprink GTUBE SCH (20:35)
[2024-06-18] MEDS: Sertraline 50 MG Tab GTUBE SCH (20:36)
[2024-06-18] MEDS: RUFINAMIDE 400 MG GTUBE SCH (20:43)
[2024-06-19 04:50] LABS: HEMATOCRIT 35.9 % (42.0-52.0); HEMOGLOBIN 10.9 gm/dl (14.0-18.0); MEAN CORPUSCULAR HEMOGLOBIN 28.6 pg (28.0-32.0); MEAN CORPUSCULAR HGB CONC 30.4 g/dl (32.0-36.0); MEAN CORPUSCULAR VOLUME 94.2 fl (83.0-99.0); MEAN PLATELET VOLUME 9.8 fl (9.4-12.4); PLATELET COUNT,PLT 221 K/mm3 (150-400); RED BLOOD CELL COUNT 3.81 M/mm3 (4.52-5.90); WHITE BLOOD CELL COUNT,WBC 4.13 K/mm3 (3.9-11.3)
[2024-06-19 05:20] LABS: A/G RATIO 0.4 (1-2); ALBUMIN 2.4 g/dl (3.4-5.0); ANION GAP 10.7 (5-15); BILIRUBIN TOTAL 0.2 mg/dL (0.2-1.0); C-REACTIVE PROTEIN 10.31 mg/dL (<0.30); CALCIUM 8.3 mg/dL (8.5-10.1); CREATININE 0.9 mg/dL (0.7-1.3); EST CRCL DRUG DOSING (CG) 124.89 mL/min; POTASSIUM,K 3.7 mEq/L (3.5-5.1); PROTEIN TOTAL,TP 8.8 g/dl (6.4-8.2)
[2024-06-19] MEDS: Pantoprazole 40 MG Vial IV SCH (06:32)
[2024-06-19] MEDS: Docusate Sodium 100 MG Cap GTUBE SCH (08:30)
[2024-06-19] MEDS: Divalproex Sodium Delayed-Release 125 MG Cap.Sprink GTUBE SCH (08:36)
[2024-06-19] MEDS: LINACLOTIDE 145 MCG GTUBE SCH (08:37)
[2024-06-19] MEDS ORDERED: Albuterol 0.083% 2.5 MG/3 ML Neb Soln NEB PRN (15:16)
[2024-06-20 04:22] LABS: HEMATOCRIT 35.7 % (42.0-52.0); HEMOGLOBIN 10.7 gm/dl (14.0-18.0); MEAN CORPUSCULAR HEMOGLOBIN 28.5 pg (28.0-32.0); MEAN CORPUSCULAR VOLUME 94.9 fl (83.0-99.0); MEAN PLATELET VOLUME 9.5 fl (9.4-12.4); PLATELET COUNT,PLT 233 K/mm3 (150-400); RED BLOOD CELL COUNT 3.76 M/mm3 (4.52-5.90)
[2024-06-20 04:48] LABS: A/G RATIO 0.4 (1-2); ALBUMIN 2.3 g/dl (3.4-5.0); ANION GAP 8.7 (5-15); BILIRUBIN TOTAL 0.2 mg/dL (0.2-1.0); BUN/CREATININE RATIO 17.8 (14-18); C-REACTIVE PROTEIN 5.96 mg/dL (<0.30); CALCIUM 8.3 mg/dL (8.5-10.1); CREATININE 0.9 mg/dL (0.7-1.3); EST CRCL DRUG DOSING (CG) 124.89 mL/min; POTASSIUM,K 3.7 mEq/L (3.5-5.1); PROTEIN TOTAL,TP 8.5 g/dl (6.4-8.2)
[2024-06-20] MEDS: Scopalamine 1mg/3day Transdermal Patch TOP SCH (08:21)
[2024-06-20] MEDS: guaiFENesin 100 MG/5 ML Soln 10 ML UD Cup GTUBE PRN (08:25)
[2024-06-21] MEDS: LORazepam 1 MG Tab GTUBE PRN (04:35)
[2024-06-21 04:40] LABS: HEMATOCRIT 36.8 % (42.0-52.0); HEMOGLOBIN 11.2 gm/dl (14.0-18.0); MEAN CORPUSCULAR HEMOGLOBIN 28.7 pg (28.0-32.0); MEAN CORPUSCULAR HGB CONC 30.4 g/dl (32.0-36.0); MEAN CORPUSCULAR VOLUME 94.4 fl (83.0-99.0); MEAN PLATELET VOLUME 9.7 fl (9.4-12.4); PLATELET COUNT,PLT 239 K/mm3 (150-400); WHITE BLOOD CELL COUNT,WBC 3.85 K/mm3 (3.9-11.3)
[2024-06-21 05:11] LABS: A/G RATIO 0.4 (1-2); ALBUMIN 2.3 g/dl (3.4-5.0); ANION GAP 12.1 (5-15); BILIRUBIN TOTAL 0.2 mg/dL (0.2-1.0); C-REACTIVE PROTEIN 3.07 mg/dL (<0.30); CALCIUM 8.1 mg/dL (8.5-10.1); CREATININE 0.8 mg/dL (0.7-1.3); EST CRCL DRUG DOSING (CG) 140.5 mL/min; POTASSIUM,K 4.1 mEq/L (3.5-5.1); PROTEIN TOTAL,TP 8.2 g/dl (6.4-8.2)
[2024-06-21] MEDS: Iopamidol 755 Mg/ML 100 ML Bottle IVPUSH ONE (13:16)
[2024-06-21] MEDS: Sodium Chloride 0.9% 100 ML IV SCH (13:16)
[2024-06-21] MEDS: Amoxicillin/Clavulanate K 875-125 MG Tab GTUBE SCH (20:07)
[2024-06-22 07:54] LABS: HEMATOCRIT 40.1 % (42.0-52.0); HEMOGLOBIN 12.1 gm/dl (14.0-18.0); MEAN CORPUSCULAR HEMOGLOBIN 28.5 pg (28.0-32.0); MEAN CORPUSCULAR HGB CONC 30.2 g/dl (32.0-36.0); MEAN CORPUSCULAR VOLUME 94.6 fl (83.0-99.0); MEAN PLATELET VOLUME 9.9 fl (9.4-12.4); PLATELET COUNT,PLT 244 K/mm3 (150-400); RED BLOOD CELL COUNT 4.24 M/mm3 (4.52-5.90); WHITE BLOOD CELL COUNT,WBC 3.74 K/mm3 (3.9-11.3)
[2024-06-22 08:18] LABS: A/G RATIO 0.4 (1-2); ALBUMIN 2.4 g/dl (3.4-5.0); ANION GAP 7.8 (5-15); BILIRUBIN TOTAL 0.2 mg/dL (0.2-1.0); BUN/CREATININE RATIO 21.4 (14-18); C-REACTIVE PROTEIN 2.24 mg/dL (<0.30); CALCIUM 8.7 mg/dL (8.5-10.1); CREATININE 0.7 mg/dL (0.7-1.3); EST CRCL DRUG DOSING (CG) 161.17 mL/min; POTASSIUM,K 3.8 mEq/L (3.5-5.1); PROTEIN TOTAL,TP 8.4 g/dl (6.4-8.2)
[2024-06-22] MEDS: Enoxaparin 40 MG/0.4 ML Syringe SUBCUT SCH (18:26)
[2024-06-23 06:52] LABS: ANION GAP 9.8 (5-15); BUN/CREATININE RATIO 18.8 (14-18); CALCIUM 8.5 mg/dL (8.5-10.1); CREATININE 0.8 mg/dL (0.7-1.3); EST CRCL DRUG DOSING (CG) 141.98 mL/min; MAGNESIUM 2.5 mg/dL (1.8-2.4); PHOSPHORUS 4.3 mg/dL (2.6-4.7); POTASSIUM,K 3.8 mEq/L (3.5-5.1)
== END 2024-06-23 13:15 | disposition home or self-care (01) | DRG 871 ==
LOC: JD.ED 21:59 → JD.ICU 23:18
PROVIDERS: ADMIT Internal Medicine; ATTEND Student in an Organized Health Care Education/Training Program
PROC: 4A033R1 Measurement of Arterial Saturation, Peripheral, Percutaneous Approach (ICD-10-PCS; principal; 2024-06-17)
PROC: 5A0955A Assistance with Respiratory Ventilation, Greater than 96 Consecutive Hours, High Flow/Velocity Cannula (ICD-10-PCS; 2024-06-17)
PROC: 3E03329 Introduction of Other Anti-infective into Peripheral Vein, Percutaneous Approach (ICD-10-PCS; 2024-06-17)
DX: A41.9 Sepsis, unspecified organism (principal); J96.01 Acute respiratory failure with hypoxia; J18.9 Pneumonia, unspecified organism; J69.0 Pneumonitis due to inhalation of food and vomit; J96.21 Acute and chronic respiratory failure with hypoxia; G40.812 Lennox-Gastaut syndrome, not intractable, without status epilepticus; E87.1 Hypo-osmolality and hyponatremia; E87.0 Hyperosmolality and hypernatremia; G40.909 Epilepsy, unspecified, not intractable, without status epilepticus; K59.09 Other constipation; E86.0 Dehydration; E88.09 Other disorders of plasma-protein metabolism, not elsewhere classified; R65.20 Severe sepsis without septic shock; F41.9 Anxiety disorder, unspecified; F32.A Depression, unspecified; Z79.899 Other long term (current) drug therapy; Z79.2 Long term (current) use of antibiotics; Z79.51 Long term (current) use of inhaled steroids; Z79.02 Long term (current) use of antithrombotics/antiplatelets; Z86.16 Personal history of COVID-19; Z98.890 Other specified postprocedural states; Z93.1 Gastrostomy status; Z88.8 Allergy status to other drugs, medicaments and biological substances; Z79.1 Long term (current) use of non-steroidal anti-inflammatories (NSAID)
CPT/HCPCS: 0241U; 31720; 36415; 36600; 71045; 71045-26; 71275; 71275-26; 80048; 80053; 82803; 82947; 83605; 83735; 83880; 84100; 84145; 85025; 85027; 85379; 86140; 87040; 94640; 94667; 94668; 94761; 94762; 96374; 97110-GP; 97161-GP; 99285-25; A9270-GY; J0736; J1650; J2470; J2543; J2919; J3480; J3490; J7060; J7620-GY; Q9967

== ENCOUNTER 2024-11-29 09:02 | Emergency (ER) | payer MEDICAID ==
[2024-11-29] MEDS ORDERED: Sodium Chloride 0.9% 10 ML Syringe FLUSH PRN (09:36)
[2024-11-29 11:39] LABS: BASOPHILS ABSOLUTE AUTO 0.0 K/mm3 (0.0-0.2); BASOPHILS PERCENT AUTO 0.4 % (0.0-1.0); EOSINOPHILS ABSOLUTE AUTO 0.0 K/mm3 (0.0-0.4); EOSINOPHILS PERCENT AUTO 0.8 % (0.0-6.0); IMMATURE GRAN ABSOLUTE AUTO 0.02 K/mm3 (0.00-0.05); IMMATURE GRAN PERCENT AUTO 0.4 % (0.0-0.4); LYMPHOCYTES ABSOLUTE AUTO 1.1 K/mm3 (1.0-4.8); LYMPHOCYTES PERCENT AUTO 21.5 % (24.0-44.0); MEAN PLATELET VOLUME 11.1 fl (9.4-12.4); MONOCYTES ABSOLUTE AUTO 0.3 K/mm3 (0.0-0.8); MONOCYTES PERCENT AUTO 6.4 % (0.0-8.0); NEUTROPHILS ABSOLUTE AUTO 3.6 K/mm3 (1.8-7.7); NEUTROPHILS PERCENT AUTO 70.5 % (41.0-71.0); NRBC ABSOLUTE 0.00 (0.00-0.02); NRBC PERCENT 0.0 % (0.0-0.2); PLATELET COUNT,PLT 154 K/mm3 (150-400); RED BLOOD CELL COUNT 4.52 M/mm3 (4.52-5.90); WHITE BLOOD CELL COUNT,WBC 5.03 K/mm3 (3.9-11.3)
[2024-11-29 12:08] LABS: LACTIC ACID 1.0 mmol/L (0.4-2.0)
[2024-11-29 12:20] LABS: A/G RATIO 0.9 (1-2); ALANINE AMINOTRANSFERASE,ALT 28 U/L (16-63); ASPARTATE AMNIOTRANSFERASE,AST 26 U/L (15-37); BILIRUBIN TOTAL 0.2 mg/dL (0.2-1.0); BLOOD UREA NITROGEN,BUN 10 mg/dL (7-18); CARBON DIOXIDE,CO2 32 mEq/L (21-32); CHLORIDE,CL 102 mEq/L (98-107); CREATININE 0.6 mg/dL (0.7-1.3); ESTIMATED GFR 132 mL/min (>60); GLUCOSE RANDOM 67 mg/dL (70-99); PHOSPHORUS 3.2 mg/dL (2.6-4.7); POTASSIUM,K 4.2 mEq/L (3.5-5.1); PROTEIN TOTAL,TP 7.3 g/dl (6.4-8.2); SODIUM,NA 139 mEq/L (136-145); TSH 1.433 uIU/mL (0.358-3.74)
[2024-12-01 16:42] LABS: LAMOTROGINE 8.0 ug/mL (3.0-15.0)
== END 2024-11-29 13:30 | disposition home or self-care (01) ==
LOC: JD.ED 09:02
DX: G40.812 Lennox-Gastaut syndrome, not intractable, without status epilepticus (principal); Z88.8 Allergy status to other drugs, medicaments and biological substances; Z79.899 Other long term (current) drug therapy; Z86.16 Personal history of COVID-19
CPT/HCPCS: 36415; 70450; 70450-26; 71045; 71045-26; 80053; 80164; 80175; 83605; 83735; 84100; 84443; 85025; 93005; 99284